=== PATIENT | male | born 1950 | race Caucasian/White ===

== ENCOUNTER 2019-04-16 09:31 | Outpatient (CLI) | payer MEDICARE, BC, SELFPAY | END 2019-04-16 09:32 | disposition home or self-care (01) | PROVIDERS: PCP Family Medicine; Visit Provider Internal Medicine Pulmonary Disease | DX: J44.9 Chronic obstructive pulmonary disease, unspecified (principal); J45.991 Cough variant asthma | CPT/HCPCS: 94060; 94726; 94729; 95012 ==

== ENCOUNTER 2019-11-12 14:14 | Outpatient (CLI) | payer MEDICARE, SELFPAY ==
[2019-11-12 14:27] LABS: Hematocrit 51.2 % (37.0-46.0); Hemoglobin 17.2 g/dL (12.4-15.3); Mean Corpuscular HGB Conc 33.6 g/dL (32.0-36.0); Mean Corpuscular Hemoglobin 30.4 pg (27.0-31.0); Mean Corpuscular Volume 90.6 fL (78.0-102.0); Mean Platelet Volume 12.1 fl (8.7-11.0); Platelet Count Result 128 K/mm3 (150-420); Red Blood Count 5.65 M/mm3 (4.70-6.10); Red Cell Distribution Width 12.9 % (11.6-14.4); White Blood Count 7.5 K/mm3 (4.8-10.8)
[2019-11-12 15:27] LABS: Alanine Aminotransferase 42 U/L (16-63); Albumin Level 4.4 g/dL (3.4-5.0); Alkaline Phosphatase 64 U/L (46-116); Anion Gap 8 mmol/L (8-16); Aspartate Amino Transferase 26 U/L (15-37); Bilirubin,Total 0.4 mg/dL (0.00-1.00); Blood Urea Nitrogen 13 mg/dL (7-18); Calcium 9.3 mg/dL (8.5-10.1); Carbon Dioxide 27 mmol/L (21-32); Chloride 106 mmol/L (98-108); Cholesterol 184 mg/dL (0-200); Estimated Glomerular Filt Rate > 60; Glucose 79 mg/dL (70-99); HDL Direct 25 mg/dL (40-60); LDL Cholesterol Calculated 107 mg/dL (<130); Osmolality Calculated 291 mOsm/kg (285-295); Potassium 4.3 mmol/L (3.5-5.1); Sodium 141 mmol/L (136-145); Total Protein 8.3 g/dL (6.4-8.2); Triglycerides 258 mg/dL (0-150)
== END 2019-11-12 14:15 | disposition home or self-care (01) ==
LOC: CHSLAB 14:17
PROVIDERS: PCP Family Medicine; Visit Provider Family Medicine
DX: I10 Essential (primary) hypertension (principal)
CPT/HCPCS: 36415; 80053; 80061; 85027

== ENCOUNTER 2020-04-24 10:26 | Outpatient (CLI) | payer MEDICARE, BC, SELFPAY ==
--- NOTE | ~2020-04-24 | XR_ITS ---
XR chest 2V 04/24/2020 10:46 Indication: Cough for 5 months Procedure: 2 view chest Comparison: CT dated 03/19/2019 and chest x-ray dated 12/31/2010 Findings: There is masslike density in the right suprahilar region. Correlation with contrast-enhance d CT recommended. Heart size normal. No edema, pleural effusion or pneumothorax. No acute osseous abn ormality. Impression: 1: Masslike density right suprahilar region. Follow-up CT chest with contrast recommended. Reviewed, dictated and finalized at location B. 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 Follow-up CT chest with contrast r ecommended.
== END 2020-04-24 10:27 | disposition home or self-care (01) ==
LOC: CHSIMG 10:30
PROVIDERS: PCP Family Medicine; Visit Provider Family Medicine
DX: R05 Cough (principal)
CPT/HCPCS: 71046

== ENCOUNTER 2020-04-27 08:14 | Outpatient (CLI) | payer MEDICARE, BC, SELFPAY ==
--- NOTE | ~2020-04-27 | CT_ITS ---
EXAMINATION: CT diagnostic chest w con DATE: 04/27/2020 09:22 INDICATION: Cough for 5 months. Masslike density in the right suprahilar area on 2 view ch est radiographic examination TECHNIQUE: Computed tomography (CT) of the chest was performed with 75 cc Omnipaque 350 intravenous c ontrast. Automated exposure control and iterative reconstruction technique were employed. Exam dose: 770.38 mGy-cm total exam DLP. COMPARISON: 04/24/2020 2 view chest 03/19/2019 CT lung screening FINDINGS: There is a completely new interval mass measuring up to 3.2 x 3.9 cm in the posterior segme nt of the right upper lobe, extending to the right suprahilar area. There is associated right hilar a nd subcarinal lymphadenopathy, with some interval enlarged superior mediastinal, prevascular and aort opulmonary lymph nodes compared to 03/19/2019. Findings are consistent with right upper lobe bronchogen ic carcinoma with right hilar and mediastinal metastatic adenopathy. There is mild surrounding right upper lobe infiltrate. Mild to moderate emphysema is noted. There are bilateral calcified pulmonary granulomas and calcified bilateral hilar and subcarinal lymph nodes, as well as some calcified splenic granulomas, consistent with old granulomatous disease. Normal size and homogeneous enhancement of the thyroid gland. No thoracic aortic aneurysm or dissecti on. Normal heart size. Coronary, aortic calcifications. No pericardial effusion. Probable small left hepatic cyst. 2.6 cm left renal cyst. There are a couple of very small upper pole right renal cyst. Normal morpholo gy of the adrenal glands. Diffuse idiopathic skeletal hyperostosis of the thoracic spine. No suspicious osteolytic or osteoblas tic lesions are noted. IMPRESSION: New 3.2 x 3.9 cm posterior segment right upper lobe bronchogenic carcinoma with metastat ic right hilar and mediastinal adenopathy Adjacent right upper lobe mild infiltrate Emphysema Hepatic and renal cysts Reviewed, dictated and finalized at Location A. Reviewed, dictated and finalized at location B. WINDER IMPRESSION: New 3.2 x 3.9 cm posterior segment right upper lobe bronchogenic c arcinoma with metastatic right hilar and mediastinal adenopathy Adjacent right upper lobe mild infiltrate Emphysema Hepatic and renal cysts
[2020-04-27 08:35] LABS: Estimated Glomerular Filt Rate > 60
== END 2020-04-27 08:15 | disposition home or self-care (01) ==
LOC: CHSIMG 08:16
PROVIDERS: PCP Family Medicine; Visit Provider Family Medicine
DX: R93.89 Abnormal findings on diagnostic imaging of other specified body structures (principal)
CPT/HCPCS: 71260; Q9967

== ENCOUNTER 2020-05-05 11:36 | Outpatient (CLI) | payer MEDICARE, BC, SELFPAY ==
--- NOTE | ~2020-05-05 | PE_ITS ---
. EXAMINATION: PET skull to mid thigh DATE: 05/05/2020 14:06 INDICATION: Malignant neoplasm of right lung upper lobe. TECHNIQUE: Blood glucose level was 106 mg/dL. 10.264 mCi of 18-fluorodeoxyglucose (18-FDG) was admini stered i.v. Low dose computed tomography (CT) images were acquired from the base of the brain to the proximal thighs for attenuation correction and anatomic localization. Automated exposure control was employed. Dose-length product (DLP) was 1167 mGy-cm. Positron emission tomography (PET) images were a cquired in the same distribution. COMPARISON: Chest CT 04/27/2020, 03/19/2019 FINDINGS: Head/neck: There is a 2.1 x 1.7 cm mass in superficial right parotid gland with maximum SUV of 19.4. There is a 1.4 x 1.0 cm mass in superficial left parotid gland with maximum SUV of 8.3. There is incr eased activity in two right supraclavicular lymph nodes, the larger of which measures 1.6 x 1.0 cm. Chest: Calcified pulmonary nodules and calcified hilar lymph nodes are consistent with old granulomat ous disease. There is a 5.8 x 2.7 cm mass with maximum SUV of 14.7 in right lung upper lobe with occl usion of the bronchi to the apical and posterior segments with peripheral mucous plugging. There are centrilobular nodules in the apical and posterior segments without increased activity, consistent wit h pneumonia. No pleural effusion. The heart size is normal. There are coronary artery calcifications. No pericardial effusion. There is right hilar and mediastinal lymphadenopathy with increased activit y. There are suture anchors in left humeral head. A small sclerotic lesion in left eighth rib is like ly a benign bone island. There is mild chronic anterior wedging of multiple thoracic vertebral bodies . Abdomen/pelvis/proximal thighs: The liver is normal. There are is a gallstone in the gallbladder, whi ch is normal in size. The spleen, pancreas, adrenal glands, are normal. There are cysts in the kidney s measuring up to 6.1 cm on the left. There is a 5 mm stone in right kidney. There is diverticulosis of the colon without evidence of diverticulitis. There are no dilated loops of bowel. The prostate is moderately enlarged. There are no pathologically enlarged lymph nodes. There is no free intraperiton eal fluid. IMPRESSION: 1. 5.8 x 2.7 cm mass in right lung upper lobe with increased activity, consistent with primary bronch ogenic carcinoma. 2. Right hilar, mediastinal, and right supraclavicular lymphadenopathy with increased activity, consi stent with metastatic disease. Ultrasound-guided core needle biopsy of a right supraclavicular lymph node is recommended. 3. Mild postobstructive pneumonia in right upper lobe. 4. Bilateral parotid masses with increased activity. The differential diagnosis includes benign mixed tumor, Warthin tumor, and less likely beatriz metastatic disease or primary malignancy. Ultrasound-kieran ded fine-needle aspiration is recommended. Reviewed, dictated and finalized at location A. 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 5.8 x 2.7 cm mass in right lung upper lobe with increased activity, consiste nt with primary bronchogenic carcinoma. 2. Right hilar, mediastinal, and right supraclavicular lymphadenopathy with inc reased activity, consistent with metastatic disease. Ultrasound-guided core nee dle biopsy of a right supraclavicular lymph node is recommended. 3. Mild postobstructive pneumonia in right upper lobe. 4. Bilateral parotid masses with increased activity. The differential diagnosis includes benign mixed tumor, Warthin tumor, and less likely beatriz metastatic d isease or primary malignancy. Ultrasound-guided fine-needle aspiration is recom mended.
[2020-05-05 12:30] LABS: Glucose Point of Care 106 (65-105)
== END 2020-05-05 11:37 | disposition home or self-care (01) ==
PROVIDERS: PCP Family Medicine; Visit Provider Internal Medicine Hematology & Oncology
DX: C34.90 Malignant neoplasm of unspecified part of unspecified bronchus or lung (principal); J18.9 Pneumonia, unspecified organism; R91.8 Other nonspecific abnormal finding of lung field
CPT/HCPCS: 78815; 82948; A9552

== ENCOUNTER → 2020-05-18 00:21 | Outpatient (CLI) | payer MEDICARE, BC, SELFPAY ==
[2020-05-18 18:02] LABS: SARS-CoV-2 RNA PCR Negative
== END ==
PROVIDERS: PCP Family Medicine; Visit Provider Surgery
DX: Z01.812 Encounter for preprocedural laboratory examination (principal); Z20.822 Contact with and (suspected) exposure to COVID-19
CPT/HCPCS: C9803; U0003; U0005

== ENCOUNTER 2020-05-18 09:56 | Outpatient (CLI) | payer MEDICARE, BC, SELFPAY ==
--- NOTE | 2020-05-18 10:05 | ECG_ITS ---
Measurements Intervals [place] Rate: 61 P: 90 OR: 168 QRS: 43 QRSD: 109 T: 33 QT: 403 QTc: 408 Interpretive Statements SINUS RHYTHM EARLY PRECORDIAL R/S TRANSITION CONSIDER INFERIOR INFARCT, AGE INDETERMINATE BASELINE ARTIFACT- I, II, III, AVR, AVL, AVF, V3, V6 ABNORMAL ECG Electronically Signed On 05-18-2020 10:32:37 PAINTINGS RESTORER by Zenon Sierra D.O.
[2020-05-18 10:24] LABS: Basophils Absolute Auto 0.1 K/mm3 (0.0-0.1); Basophils Percent Auto 0.7 % (0.2-1.2); Eosinophils Percent Auto 0.5 % (0-4.4); Hematocrit 51.7 % (42.0-52.0); Immature Granulocyte Absolute 0.02 K/mm3 (0.00-0.031); Immature Granulocyte Percent A 0.2 % (0-0.5); Immature Platelet Fraction Pct 8.9 % (0.9-11.2); Lymphocytes Percent Auto 19.9 % (18.3-44.2); Mean Corpuscular HGB Conc 32.9 g/dl (32-36); Mean Corpuscular Hemoglobin 29.5 pg (26-34); Mean Corpuscular Volume 89.8 fl (80-100); Mean Platelet Volume 11.4 fl (7.4-10.4); Monocytes Absolute Auto 0.7 K/mm3 (0.1-0.6); Neutrophils Absolute Auto 5.6 K/mm3 (1.3-6.7); Neutrophils Percent Auto 69.7 % (45.5-73.1); Platelet Count Result 118 k/mm3 (150-375); Red Blood Count 5.76 M/mm3 (4.6-6.20); Red Cell Distribution Width 14.2 % (11.5-14.5)
[2020-05-18 10:40] LABS: Anion Gap 3 mmol/L (8-16); Blood Urea Nitrogen 14 mg/dL (9-20); Calcium 9.5 mg/dL (8.4-10.2); Carbon Dioxide 32 mmol/L (22-30); Chloride 106 mmol/L (98-107); Estimated Glomerular Filt Rate > 60; Glucose 83 mg/dL (75-110); Potassium 4.3 mmol/L (3.4-5.0); Sodium 141 mmol/L (137-145)
[2020-05-18 10:42] LABS: Prothrombin Time 13.4 Seconds (11.1-14.7)
[2020-05-18 10:43] LABS: Partial Thromboplastin Time 28.9 SECONDS (22.3-36.8)
== END 2020-05-18 09:57 | disposition home or self-care (01) ==
LOC: ANHSURGERY 10:02
PROVIDERS: Anesthesiology; PCP Family Medicine; Visit Provider Surgery
DX: Z01.818 Encounter for other preprocedural examination (principal); I10 Essential (primary) hypertension; C34.90 Malignant neoplasm of unspecified part of unspecified bronchus or lung; Z51.81 Encounter for therapeutic drug level monitoring; R94.31 Abnormal electrocardiogram [ECG] [EKG]
CPT/HCPCS: 36415; 80048; 85025; 85055; 85610; 85730; 93005; C9803; U0003; U0005

== ENCOUNTER 2020-05-21 01:24 | Day surgery (SDC) | payer MEDICARE, BC, SELFPAY ==
[2020-05-15 13:15] VITALS: BMI 32.3
--- NOTE | 2020-05-20 12:23 | WPDANESEPPF ---
Anes - Initial Pre Proc Eval Procedure: Operation Date: 05/21/20 10:30 Proposed Procedures p Insertion Tess Cath - Zhou Willoughby DO Date/Time: 05/20/20 12:23 Surgeon: Zhou Willoughby DO Pre Op Diagnosis: mag. neoplasm upper lobe lung Patient Data Age: 69 Gender: M Height: 1.83 m Weight: 108 kg Allergies Allergy/AdvReac Type Severity Reaction Status Date / Time penicillin G Allergy Mild Rash Verified 05/21/20 08:25 Home Medications Medication Instructions Recorded Confirmed Type albuterol sulfate 90 mcg/actuation 2 inhalation INHALATION Q4-6H PRN 11/12/19 05/20/20 History breath activated powder inhaler mometasone 50 mcg/actuation nasal 2 spray INTRANASAL DAILY PRN #17 g 04/21/20 05/20/20 Rx spray montelukast 10 mg tablet 10 mg PO DAILY #90 tablet 04/21/20 05/20/20 Rx losartan-hydrochlorothiazide 1 tablet PO QAM 05/15/20 05/20/20 History Patient hx anesthesia problems: none Family hx anesthesia problems: none PMFSH Past Medical History Medical History (Updated 05/20/20 @ 12:24 by Gume Samuel MD) Bronchogenic carcinoma COPD (chronic obstructive pulmonary disease) Ear foreign body History of DVT (deep vein thrombosis) Hypertension Lung mass Malignant neoplasm of upper lobe, right bronchus or lung BRANDYN on CPAP Osteoarthritis Tobacco abuse Surgical History Surgical History History of left knee surgery History of shoulder surgery left Hx of tonsillectomy S/P hernia surgery Family History Family History (Updated 05/20/20 @ 11:12 by Aniceto Gilmore MD) Father Heart disease Mother Lung cancer Social History Social History Smoking packs per day: 2 Smoking cigarettes per day: 40.0 Years smoked: 50 Smoking pack-years: 100.00 Smoking status: Former smoker Tobacco type: cigarettes and e-cigarettes/vaping Additional smoking assessment comments: smoked less than 1/2 pack when he stopped Alcohol intake: current Living arrangements: with family Additional living arrangements comments: . Enjoys Camping. Additional occupation/education comments: Prior Occupation: [employer] Spiritual care concerns: No Anes - Eval Final PreProcedure Day of Procedure 05/20/20 12:23 Patient weight: obese Heart: regular rate and rhythm Lungs: clear to auscultation and normal air movement Airway: Mallampati scale class II Neurological: alert and oriented Last oral intake: >/= 8 hours ASA classification: III Emergent: no Anesthetic plan: proceed Anesthesia type and monitoring: general GIVS Informed Consent: The patient's anesthetic plan and its attendant risks and benefits were discussed with the patient/family/POA. Questions were solicited and answers provided to the satisfaction of the patient/family/POA.
--- NOTE | ~2020-05-21 | XR_ITS ---
EXAMINATION: XR fl guide central line place EXAM DATE: 05/21/2020 11:14 INDICATION: Tess catheter insertion. TECHNIQUE: Fluoroscopy used during XR fl guide central line place performed by Dr. Zhou leslie DO. The DAP for this procedure was 1.6 mGym2. FINDINGS: Frontal image demonstrates left-sided portacatheter, IJ approach, tip projecting inferiorl y over expected location of cavoatrial junction. Correlate with procedure note. IMPRESSION: Fluoroscopy used during XR fl guide central line place. 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
--- NOTE | ~2020-05-21 | XR_ITS ---
EXAMINATION: XR chest port-a-cath/central EXAM DATE: 05/21/2020 11:34 INDICATION: Tess catheter insertion. TECHNIQUE: Portable AP frontal chest x-ray was obtained. Comparison is made to prior examination from 04/24/2020. FINDINGS: There is a left-sided IJ approach portacatheter. Tip projects at the level of the percy ov erlying the SVC, pointing inferiorly. No postprocedure pneumothorax. Cardiomediastinal silhouette is normal. There are no pleural effusions. No confluent airspace disease. IMPRESSION: 1. No evidence postprocedure pneumothorax. Reviewed, dictated and finalized at location B. 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
[2020-05-21 08:22] VITALS: BP 108/68; PULSE 69; RESP 16; TEMP 36.3; O2SAT 98
[2020-05-21] MEDS: LACTATED RINGERS 1,000 ML 30 ML IV CONT (08:53)
[2020-05-21] MEDS: KETOROLAC 15 MG/ML VIAL (*BKC) IV PUSH (08:55)
--- NOTE | 2020-05-21 10:02 | PM.IMHP ---
H&P: HPI History of Present Illness Date/Time: 05/21/20 10:02 Chief Complaint: right lung cancer Narrative: 69 yo man presents for port placement. He was recently diagnosed with right lung cancer. He is in need of medical terminologist IV access for chemotherapy. Review of Systems Review of Systems: All systems reviewed & are unremarkable except as noted in HPI and below Constitutional: Constitutional: Denies chills, Denies fever(s), Denies headache(s) and Denies weight loss Eyes: Eyes: Denies change in vision ENT: Denies dizziness, Denies headache(s), Denies neck mass and Denies throat swelling Cardiovascular: Cardiovascular: Denies chest pain, Denies lightheadedness and Denies dyspnea Respiratory: Respiratory: Denies cough, Denies dyspnea and Denies wheezing Gastrointestinal: Gastrointestinal: Denies abdominal pain, Denies change in bowel habits, Denies nausea and Denies vomiting Genitourinary: Genitourinary: Denies hematuria and Denies dysuria Musculoskeletal: Musculoskeletal: Reports as per HPI Integumentary/Breasts: Skin/Breast: Reports as per HPI Neurologic: Denies dizziness and Denies headache(s) Allergic/Immunologic: Allergic/Immunologic: Denies throat swelling and Denies wheezing PMFSH Past Medical History Medical History Bronchogenic carcinoma COPD (chronic obstructive pulmonary disease) Ear foreign body History of DVT (deep vein thrombosis) Hypertension Lung mass Malignant neoplasm of upper lobe, right bronchus or lung BRANDYN on CPAP Osteoarthritis Tobacco abuse Surgical History Surgical History History of left knee surgery History of shoulder surgery left Hx of tonsillectomy S/P hernia surgery Family History Family History Father Heart disease Mother Lung cancer Social History Social History Smoking packs per day: 2 Smoking cigarettes per day: 40.0 Years smoked: 50 Smoking pack-years: 100.00 Smoking status: Former smoker Tobacco type: cigarettes and e-cigarettes/vaping Additional smoking assessment comments: smoked less than 1/2 pack when he stopped Alcohol intake: current Living arrangements: with family Additional living arrangements comments: . Enjoys Camping. Additional occupation/education comments: Prior Occupation: [employer] Spiritual care concerns: No Meds Home Medications and Allergies Home Medications Medication Instructions Recorded Confirmed Type albuterol sulfate 90 mcg/actuation 2 inhalation INHALATION Q4-6H PRN 11/12/19 05/21/20 History breath activated powder inhaler mometasone 50 mcg/actuation nasal 2 spray INTRANASAL DAILY PRN #17 g 04/21/20 05/21/20 Rx spray montelukast 10 mg tablet 10 mg PO DAILY #90 tablet 04/21/20 05/21/20 Rx losartan-hydrochlorothiazide 1 tablet PO QAM 05/15/20 05/21/20 History ywtghdunpigc-udthzefh-srixpn 1 tablet PO DAILY 05/21/20 05/21/20 History [Multivitamin 50 Plus] Allergies Allergy/AdvReac Type Severity Reaction Status Date / Time penicillin G Allergy Mild Rash Verified 05/21/20 08:25 Vital Signs Vital Signs - 24 hr 05/21/20 08:22 Temperature 36.3 C L Pulse Rate 69 Respiratory Rate 16 Blood Pressure 108/68 Pulse Oximetry 98 Exam Const: General: no acute distress and alert Orientation/consciousness: patient oriented x3 HENMT: Head: normocephalic and atraumatic Ears: hearing grossly normal bilaterally General nose exam: Normal nares present Mouth: Yes Normal oral and palatal mucosa present Eyes: Periorbital: periorbital findings normal Sclera: sclerae normal EOM: EOMs intact bilaterally Neck: Neck: normal visual inspection, no lymphadenopathy and trachea midline Chest: Chest palpation & inspection: normal inspection of the chest Resp:
--- NOTE | 2020-05-21 10:16 | WPDHPUPDATE1 ---
History and Physical Update Update Date/Time: 05/21/20 10:16 History and Physical has been reviewed, including an updated exam of the patient. There are NO changes in the patient's condition. Risks, benefits, and alternatives have been discussed and questions answered. Patient agrees to proceed with procedure.
[2020-05-21] MEDS: ceFAZolin 2 GM/D5W 50 ML 2 GM/50 ML BAG IVPB (10:26)
[2020-05-21] MEDS: LIDO 1%/EPINEPHRINE 1:100,000 50 ML VIAL INFILTRATE (10:55)
[2020-05-21] MEDS: HEPARIN SODIUM 5,000 UNITS/ML VIAL 5000 UNITS IRRIGATION (10:56)
[2020-05-21] MEDS: HEPARIN SODIUM, PORCINE 10,000 UNITS/10 ML VIAL 10000 UNITS IRRIGATION (10:58)
[2020-05-21 11:19] VITALS: BP 113/77; PULSE 80; RESP 16; O2SAT 97
--- NOTE | 2020-05-21 11:30 | PM.PROC ---
Procedure Note - Detailed Date of procedure: 05/21/20 Pre-op diagnosis: mag. neoplasm upper lobe lung Post-op diagnosis: same Procedure performed: Left internal jugular Port-A-Cath placement using ultrasound and fluoroscopic guidance Description of procedure: Procedure as well as risks, benefits, and alternatives were discussed with patient. Written consent was obtained and placed in chart prior to procedure. Patient was brought back to surgical suite. Was placed supine on operating table. Time-out was done confirm patient procedure. IV sedation was then administered by the Anesthesia Department. The chest and neck area was prepped and draped in sterile fashion using chlorhexidine prep. Patient was placed in Trendelenburg position. SonoSite ultrasound was used to identify the left internal jugular vein. It was visualized as a compressible vessel just lateral to the carotid artery. 1% lidocaine with epinephrine was infiltrated directly over the vessel under ultrasound guidance. An 18 gauge introducer needle was then advanced under ultrasound guidance directly into the left internal jugular vein. Dark nonpulsatile blood was aspirated. A 0.035 in guidewire was then advanced through the needle under fluoroscopic guidance. The guidewire was visualized advancing all the way down into the superior vena cava. 1% lidocaine with epinephrine was then infiltrated on the left anterior chest and along the tract up to the guidewire insertion site. A 3 cm incision was made with a 15 blade scalpel, and electrocautery was then used for dissection down through the subcutaneous tissue to the pectoral fascia. A pocket was created just inferior to the incision using blunt dissection. A small chary incision was then also made at the insertion site at the neck. The tunneler was then advanced from the chest incision up to the neck incision and the catheter tubing was brought up through this tract. The dilator and sheath were then advanced over the guidewire under fluoroscopic visualization. The dilator and guidewire were then removed leaving the sheath in place. The catheter tubing was then advanced through the sheath under fluoroscopic guidance. The sheath was unsnapped and carefully peeled away. The catheter tubing was released underneath the neck incision. Fluoroscopy was used to confirm proper placement of the catheter tubing and no kinks along its path. The catheter was then cut to proper length and secured to the port. The port was then accessed with a Ku needle and aspirated and flushed with heparinized saline. The port function with ease. The port was then hep-locked with Hep-Lock solution. The port was then placed within the pocket that was created, and was secured to the fascia using 3 0 Prolene simple interrupted sutures. The patient was flattened out in bed. Penny's fascia was reapproximated using 3 0 Vicryl simple interrupted sutures. The skin of the incisions was then approximated using 4-0 Monocryl subcuticular suture. Exofin glue was then applied on top. The patient was then awakened from anesthesia and transferred to recovery. Implants: Smart Port CT port Anesthesia: MAC and local (1% lidocaine with epinephrine) Surgeon: Zhou Willoughby DO Estimated blood loss (mL): 10 Complications: No immediate complications Condition: stable Disposition: same day Findings: U/s was used to identify the left internal jugular vein. 18g introducer needle advanced under u/s guidance. Dark non-pulsatile blood was aspirated. Fluoroscopy was used to guide advancement of the guidewire, dilator, and sheath. I did have some difficulty getting the catheter tubing to direct into the superior vena cava. It was advancing into the azygous vein initially. I was eventually able to get a glidewire to advance into the right atrium and advance the catheter over the guidewire into the distal SVC. Final fluoroscopic images demonstrated port in proper position with tip in dist
[2020-05-21 11:45] VITALS: BP 121/81; PULSE 72; RESP 20
[2020-05-21 12:15] VITALS: BP 117/80; PULSE 74; RESP 20
--- NOTE | 2020-05-21 14:25 | SUR.PHASEII ---
1130 - xray results noted 1205 - pt c/o rt calf discomfort. pt states that it is a soreness and does not need pain medication at this time. no swelling noted to rt calf. michaela's sign negative. dr. lizarraga called and informed of pt's complaints. no orders received at this time.
== END 2020-05-21 12:20 | disposition home or self-care (01) ==
PROVIDERS: PCP Family Medicine; Visit Provider Surgery
PROC: (CPT 36561; principal; 2020-05-21 10:30)
DX: C34.11 Malignant neoplasm of upper lobe, right bronchus or lung (principal); J44.9 Chronic obstructive pulmonary disease, unspecified; I10 Essential (primary) hypertension; G47.33 Obstructive sleep apnea (adult) (pediatric); M19.90 Unspecified osteoarthritis, unspecified site; Z86.718 Personal history of other venous thrombosis and embolism; Z87.891 Personal history of nicotine dependence; Z79.51 Long term (current) use of inhaled steroids
CPT/HCPCS: 36561; 77001; C1769; C1788; J0690; J1644; J1885; J2250; J2704; J3010; J7030; J7120

== ENCOUNTER 2020-06-02 08:48 | Outpatient (CLI) | payer MEDICARE, BC, SELFPAY ==
--- NOTE | ~2020-06-02 | CT_ITS ---
EXAMINATION: CT brain w con DATE: 06/02/2020 09:49 INDICATION: Right lung cancer. TECHNIQUE: Computed tomography (CT) of the head was performed with 100 cc Omnipaque 350 intravenous c ontrast. The dose-length product was 605.33 mGy-cm. The mA was adjusted according to patient size. It erative reconstruction technique was employed. COMPARISON: CT sinus dated 03/29/2011 and PET/CT dated 05/05/2020 FINDINGS: Brain parenchymal volume is normal for age. There is no abnormally enhancing masses or pare nchymal enhancement. No ventriculomegaly or midline shift. Paranasal sinuses and mastoids are pneumat ized. No depressed skull fractures. Evaluation. IMPRESSION: 1. No acute intracranial abnormality. No evidence for metastases. 2: Chronic left parietal infarction. Reviewed, dictated and finalized at location A.
--- NOTE | ~2020-06-02 | US_ITS ---
EXAMINATION: US FNA w image guidance DATE: 06/02/2020 10:44 INDICATION: Right lung cancer. Bilateral FDG avid parotid nodules. TECHNIQUE: A time-out was performed to verify the patient's name, date of , and procedure to be performed . The procedure and its benefits and risks were discussed with the patient. Risks specifically discus sed included bleeding and infection. The patient understood the risks and agreed to proceed. The righ t side of the face/upper neck was prepped and draped in the usual sterile manner. 2 mL 1% lidocaine was used for local anesthesia. 6 passes were made with a 25G needle into the lesion. Appropriate ne edle location was documented with continuous sonographic guidance. A sterile bandage was applied. Th ere were no immediate complications. FINDINGS: Grayscale ultrasound images demonstrate biopsy needles advanced into a 2.4 x 1.6 x 1.7 cm hypoechoic right parotid mass. IMPRESSION: 1. Successful ultrasound-guided fine needle aspiration of a 2.4 x 1.6 x 1.7 cm hypoechoic right paro tid mass. Reviewed, dictated and finalized at location A. IMPRESSION: 1. Successful ultrasound-guided fine needle aspiration of a 2.4 x 1.6 x 1.7 cm hypoechoic right parotid mass.
--- NOTE | ~2020-06-02 | US_ITS ---
. EXAMINATION: US biopsy lymph node DATE: 06/02/2020 10:42 INDICATION: Right lung cancer with FDG avid right supraclavicular lymphadenopathy TECHNIQUE: The procedure including the risks and benefits was discussed with the patient. Risks discu ssed included bleeding and infection. The patient understood the risks and agreed to proceed. The sk in overlying the supraclavicular region was prepped and draped in usual sterile fashion. Anesthetic was administered with 1% lidocaine subcutaneously. An 18 gauge core biopsy needle was advanced under continuous ultrasound observation to 2 of the lesions of interest. 6 core biopsy specimens were obta ined, 3 each from the 2 largest right supraclavicular lymph nodes. The needle was removed and the en try site was cleaned and dressed. Post procedure ultrasound demonstrated no hemorrhage. FINDINGS: Ultrasound images demonstrate several hypoechoic right supraclavicular lymph nodes, the 2 l argest measuring 9 x 9 mm and 11 x 7 mm . Subsequent images demonstrate biopsy needles advanced into each of these lymph nodes. IMPRESSION: 1. Successful Ultrasound-guided biopsy of a pair of mildly enlarged right supraclavicular lymph nodes which demonstrate increased FDG uptake on prior PET/CT. Reviewed, dictated and finalized at location A. IMPRESSION: 1. Successful Ultrasound-guided biopsy of a pair of mildly enlarged right supra clavicular lymph nodes which demonstrate increased FDG uptake on prior PET/CT.
[2020-06-02 09:35] LABS: Estimated Glomerular Filt Rate > 60
== END 2020-06-02 08:49 | disposition home or self-care (01) ==
PROVIDERS: PCP Family Medicine; Visit Provider Internal Medicine Hematology & Oncology
DX: C34.91 Malignant neoplasm of unspecified part of right bronchus or lung (principal); C77.9 Secondary and unspecified malignant neoplasm of lymph node, unspecified; D11.0 Benign neoplasm of parotid gland; I63.9 Cerebral infarction, unspecified
CPT/HCPCS: 10005; 38505; 70460; 76942; 88173; 88305; 88313; 88342; Q9967

== ENCOUNTER 2020-10-23 10:04 | Outpatient (CLI) | payer MEDICARE, BC, SELFPAY ==
--- NOTE | ~2020-10-23 | CT_ITS ---
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 The dose-length product (DLP) was 713.81 mGy-cm. Ite rative reconstruction was used. COMPARISON: 05/05/2020 FINDINGS: There is a 1.9 x 1.2 cm nodule in the medial right upper lobe on image 40 which is decrease d in size since the comparison examination. There is mild atelectasis of the right upper lobe. No ple ural effusion or pneumothorax is identified. There is mild emphysema. A left subclavian Port-A-Cath e nds with its tip in the proximal right atrium. Mediastinal and right hilar lymphadenopathy have resol martha. There is calcified coronary artery atherosclerosis. The heart size is normal. An 11 mm cyst is p resent in the right hepatic lobe. There is a 2.6 cm cyst of the left kidney. A stone is present in th e nondistended gallbladder. IMPRESSION: 1. Interval decrease in size of a right upper lobe nodule, consistent with response to therapy. 2. Resolved thoracic lymphadenopathy. Reviewed, dictated and finalized at location B. IMPRESSION: 1. Interval decrease in size of a right upper lobe nodule, consistent with resp onse to therapy. 2. Resolved thoracic lymphadenopathy.
== END 2020-10-23 10:05 | disposition home or self-care (01) ==
PROVIDERS: PCP Family Medicine; Visit Provider Internal Medicine Hematology & Oncology
DX: C34.11 Malignant neoplasm of upper lobe, right bronchus or lung (principal)
CPT/HCPCS: 71260; Q9967

== ENCOUNTER 2020-11-18 11:25 | Outpatient (CLI) | payer MEDICARE, BC, SELFPAY ==
--- NOTE | ~2020-11-18 | US_ITS ---
EXAMINATION: US venous doppler LE RT DATE: 11/18/2020 11:59 INDICATION: Right lower limb pain and swelling. Personal history of other venous thrombosis. TECHNIQUE: Grayscale ultrasound images without and with compression and Doppler ultrasound images of the right lower extremity veins were obtained. COMPARISON: Ultrasound 04/10/2018 FINDINGS: The visualized portions of right common femoral vein, profunda (deep) femoral vein, and greater saphe nous vein outflow are patent. There is thrombus in right femoral, popliteal, posterior tibial, perone al, gastrocnemius, and soleus veins. IMPRESSION: 1. Deep vein thrombosis involving right femoral, popliteal, posterior tibial, peroneal, gastrocnemiu s, and soleus veins. I called this result to Ruthann Boss. Reviewed, dictated and finalized at location A. IMPRESSION: 1. Deep vein thrombosis involving right femoral, popliteal, posterior tibial, peroneal, gastrocnemius, and soleus veins. I called this result to Ruthann ernandez
== END 2020-11-18 11:26 | disposition home or self-care (01) ==
LOC: ANHIMG 11:33
PROVIDERS: PCP Family Medicine; Visit Provider Nurse Practitioner Family
DX: M79.89 Other specified soft tissue disorders (principal); Z86.718 Personal history of other venous thrombosis and embolism; I82.431 Acute embolism and thrombosis of right popliteal vein; I82.411 Acute embolism and thrombosis of right femoral vein; I82.441 Acute embolism and thrombosis of right tibial vein; I82.451 Acute embolism and thrombosis of right peroneal vein; I82.461 Acute embolism and thrombosis of right calf muscular vein; I82.491 Acute embolism and thrombosis of other specified deep vein of right lower extremity
CPT/HCPCS: 93971

== ENCOUNTER 2020-12-14 03:20 | Emergency (ER) | payer MEDICARE, BC, SELFPAY ==
--- NOTE | ~2020-12-14 | CT_ITS ---
EXAMINATION: CT abdomen pelvis wo con DATE: 12/14/2020 06:14 INDICATION: Abdominal pain, right side. Flank pain. TECHNIQUE: Computed tomography (CT) of the abdomen and pelvis was performed without intravenous contr ast. Automated exposure control and iterative reconstruction technique were employed. Exam dose: 629 .23 mGy-cm total exam DLP. COMPARISON: May 05, 2020 CT scan FINDINGS: The lung bases are clear of infiltrate or consolidation. Normal heart size. No pericardial or pleural effusion. Cholelithiasis. No gallbladder wall thickening or pericholecystic fluid or fat stranding. There is a 12.5 mm indeterminate peripheral hypoattenuating hepatic lesion near the junction of the m edial segment of the left and right hepatic lobe. No other hepatic space-occupying mass lesion is dereje dent on this limited noncontrast examination. Normal splenic size. No pancreatic mass lesion, calcification or ductal dilatation. No bile duct dila tation. Normal morphology of the adrenal glands. 3.8 cm exophytic lower pole right renal cyst. 1.4 cm mid right renal probable cyst. 2.4 cm in 6 cm left renal cyst. 4 mm distal right ureteral calculus with mild right hydroureteronephrosis. No other urinary tract calculus is noted. There is prostate enlargement and calcification. There is moderate diffuse thickening of the urinary bladder wall. There is atherosclerotic calcification of the abdominal aorta but no aneurysm. No intraperitoneal or retroperitoneal or pelvic mass lesion or adenopathy or ascites. Normal appendix. Diverticulosis of the sigmoid and descending colon; no CT evidence of diverticulitis . No bowel obstruction, bowel wall thickening, pneumatosis or intraperitoneal free air. Degenerative changes of the included lower thoracic and lumbar spine. Bilateral hip osteoarthritis. N o suspicious osteolytic or osteoblastic lesions are noted. IMPRESSION: 4 mm distal right ureteral calculus with mild right hydroureteronephrosis Bilateral renal cysts Prostate enlargement and calcification Diverticulosis of the left colon; no CT evidence of diverticulitis Indeterminate 12.5 mm hepatic mass Cholelithiasis Reviewed, dictated and finalized at Location A. Reviewed, dictated and finalized at location A. IMPRESSION: 4 mm distal right ureteral calculus with mild right hydroureterone phrosis Bilateral renal cysts Prostate enlargement and calcification Diverticulosis of the left colon; no CT evidence of diverticulitis Indeterminate 12.5 mm hepatic mass Cholelithiasis
[2020-12-14 03:20] VITALS: BP 171/99; PULSE 68; RESP 20; TEMP 36.2; O2SAT 96
[2020-12-14] MEDS: ONDANSETRON INJ 4 MG/2 ML VIAL IV PUSH (04:00)
--- NOTE | 2020-12-14 04:02 | ECG_ITS ---
Measurements Intervals Albert Rate: 65 P: 54 IA: 157 QRS: -1 QRSD: 111 T: 46 QT: 340 QTc: 354 Interpretive Statements SINUS RHYTHM INTRAVENTRICULAR CONDUCTION DELAY EARLY PRECORDIAL R/S TRANSITION INFERIOR INFARCT, AGE INDETERMINATE BASELINE ARTIFACT- I, II, III, AVR, AVL, AVF, V1-V6 ABNORMAL ECG Electronically Signed On 12-14-2020 7:02:58 CDT by Zenon Sierra D.O.
--- NOTE | 2020-12-14 04:14 | ED.ABDPAIN ---
HPI - Abdominal Pain General Chief Complaint: Abdominal Pain <Shannon Minor MD - Last Filed: 12/14/20 07:12> Stated Complaint: PAIN <Shannon Minor MD - Last Filed: 12/14/20 07:12> Time Seen by Provider: 12/14/20 07:33 <Shannon Minor MD - Last Filed: 12/14/20 07:12> Source: patient <Shannon Minor MD - Last Filed: 12/14/20 07:12> Mode of arrival: ambulatory <Shannon Minor MD - Last Filed: 12/14/20 07:12> Limitations: no limitations <Shannon Minor MD - Last Filed: 12/14/20 07:12> History of Present Illness HPI narrative: Pt presents with complaints of sudden onset RLQ/ Back pain. he went to bed at 10 pm, and woke at 11 pm with pain. He states pain became very intense and even caused him to vomit several times. He has never hasd this type of pain before. He has had a complex year with undergoing chemo for lung cancer and radiation. He tells me the tumor shrinked from 6 cm to 2 cm. The main tumor is in the lung. <Shannon Minor MD - Last Filed: 12/14/20 07:12> MD elicited complaint: abdominal pain <Shannon Minor MD - Last Filed: 12/14/20 07:12> Pain Consistency: constant <Shannon Minor MD - Last Filed: 12/14/20 07:12> Location: RLQ <Shannon Minor MD - Last Filed: 12/14/20 07:12> Severity: severe <Shannon Minor MD - Last Filed: 12/14/20 07:12> Quality: stabbing and sharp <Shannon Minor MD - Last Filed: 12/14/20 07:12> Migration to: other (back) <Shannon Minor MD - Last Filed: 12/14/20 07:12> Exacerbating factors: nothing <Shannon Minor MD - Last Filed: 12/14/20 07:12> Relieving factors: nothing <Shannon Minor MD - Last Filed: 12/14/20 07:12> Associated symptoms: nausea and vomiting <Shannon Minor MD - Last Filed: 12/14/20 07:12> Treatments prior to arrival: other (tylenol) <Shannon Minor MD - Last Filed: 12/14/20 07:12> Related Data Home Medications: Home Medications Medication Instructions Recorded Confirmed albuterol sulfate 90 mcg/actuation 2 inhalation INHALATION Q4-6H PRN 11/12/19 12/14/20 breath activated powder inhaler Multivitamin 50 Plus 1 tablet PO DAILY 05/21/20 12/14/20 <Shannon Minor MD - Last Filed: 12/14/20 07:12> Allergies/Adverse Reactions: Allergies Allergy/AdvReac Type Severity Reaction Status Date / Time penicillin G Allergy Mild Rash Verified 12/03/20 09:42 <Shannon Minor MD - Last Filed: 12/14/20 07:12> Review of Systems Review of Systems: All systems reviewed & are unremarkable except as noted in HPI and below <Shannon Minor MD - Last Filed: 12/14/20 07:12> Constitutional: Constitutional: Reports no additional constitutional complaints <Shannon Minor MD - Last Filed: 12/14/20 07:12> Eyes: Eyes: Reports no additional eye complaints <Shannon Minor MD - Last Filed: 12/14/20 07:12> ENT: Reports system reviewed and no additional complaints, except as documented <Shannon Minor MD - Last Filed: 12/14/20 07:12> Cardiovascular: Cardiovascular: Reports no additional cardiovascular complaints <Shannon Minor MD - Last Filed: 12/14/20 07:12> Respiratory: Respiratory: Reports no additional respiratory complaints <Shannon Minor MD - Last Filed: 12/14/20 07:12> Gastrointestinal: Gastrointestinal: Reports abdominal pain, Denies bloating, Denies constipation, Denies heartburn, Denies diarrhea, Reports nausea and Reports vomiting <Shannon Minor MD - Last Filed: 12/14/20 07:12> Genitourinary: Genitourinary: Reports no additional male genitourinary complaints <Shannon Minor MD - Last Filed: 12/14/20 07:12> Musculoskeletal: Musculoskeletal: Reports as per HPI, Reports back pain, Denies myalgias, Denies arthralgias, Denies joint swelling and Denies muscle cramps <Shannon Minor MD - Last
[2020-12-14 04:23] LABS: Basophils Absolute Auto 0.05 K/mm3 (0.00-0.10); Basophils Percent Auto 0.8 % (0.0-1.0); Eosinophils Absolute Auto 0.05 K/mm3 (0.02-0.50); Eosinophils Percent Auto 0.8 % (1.0-6.0); Hematocrit 44.8 % (37.0-46.0); Hemoglobin 15.1 g/dL (12.4-15.3); Immature Granulocyte Absolute 0.02 K/mm3 (0.00-0.00); Immature Granulocyte Percent A 0.3 % (0.0-0.0); Immature Platelet Fraction Pct 3.7 % (1.0-7.0); Lymphocytes Absolute Auto 0.74 K/mm3 (1.10-4.50); Lymphocytes Percent Auto 12.4 % (18.0-42.0); Mean Corpuscular HGB Conc 33.7 g/dL (32.0-36.0); Mean Corpuscular Hemoglobin 30.3 pg (27.0-31.0); Mean Platelet Volume 10.9 fl (8.7-11.0); Monocytes Absolute Auto 0.52 K/mm3 (0.10-0.90); Monocytes Percent Auto 8.7 % (2.0-11.0); Neutrophils Absolute Auto 4.6 K/mm3 (1.7-7.2); Platelet Count Result 83 K/mm3 (150-420); Red Blood Count 4.98 M/mm3 (4.70-6.10); Red Cell Distribution Width 12.6 % (11.6-14.4)
[2020-12-14] MEDS: KETOROLAC 15 MG/ML VIAL (*BKC) IV PUSH ×2 (04:29→07:54)
[2020-12-14 04:47] LABS: Alanine Aminotransferase 42 U/L (16-63); Albumin Level 3.9 g/dL (3.4-5.0); Alkaline Phosphatase 57 U/L (46-116); Anion Gap 14 mmol/L (8-16); Aspartate Amino Transferase 25 U/L (15-37); Bilirubin,Total 0.6 mg/dL (0.00-1.00); Blood Urea Nitrogen 17 mg/dL (7-18); Carbon Dioxide 22 mmol/L (21-32); Chloride 106 mmol/L (98-108); Estimated Glomerular Filt Rate 56; Glucose 163 mg/dL (70-99); Lipase 124 U/L (73-393); Osmolality Calculated 299 mOsm/kg (285-295); Potassium 4.3 mmol/L (3.5-5.1); Sodium 142 mmol/L (136-145); Total Protein 7.3 g/dL (6.4-8.2); Troponin I 11.6 ng/L (0.00-60.4)
[2020-12-14 04:54] LABS: Add Urine Microscopic? YES; Bilirubin Urine Negative (Negative); Blood Urine 2+ (Negative); Color Urine Yellow (Yellow); Glucose Urine UA Negative (Negative); Ketones Urine Negative (Negative); Leukocyte Esterase Ur Negative LEU/UL (Negative); Nitrate Urine Negative (Negative); Protein Urine 1+ (Negative); Specific Grav Ur >= 1.030 (1.010-1.020); Urobilinogen Urine 0.2 mg/dL (0.2-1.0); pH Urine 5.5 (5.0-8.0)
[2020-12-14 05:03] LABS: Amorphous Sediment Urine Moderate; Appearance Urine Sl Cloudy (Clear); Bacteria Urine 1+ /hpf; Mucus Urine Heavy /lpf; Squamous Epithelial Cell Urine Occasional /hpf (Few); WBC Urine None seen /hpf (0-3)
--- NOTE | 2020-12-14 06:24 | PC.NURSE ---
pt resting per cot. returned from ct. remains pain free
[2020-12-14 06:25] VITALS: BP 137/77; PULSE 65; RESP 20; TEMP 37.1; O2SAT 96
--- NOTE | 2020-12-14 07:14 | PC.NURSE ---
report to brittney samson
[2020-12-14 07:30] VITALS: BP 127/79; PULSE 69; RESP 18; O2SAT 96
== END 2020-12-14 08:15 | disposition home or self-care (01) ==
PROVIDERS: Emergency Medicine; Emergency Provider Emergency Medicine; PCP Family Medicine
DX: N13.2 Hydronephrosis with renal and ureteral calculous obstruction (principal); C34.11 Malignant neoplasm of upper lobe, right bronchus or lung; R16.0 Hepatomegaly, not elsewhere classified; J44.9 Chronic obstructive pulmonary disease, unspecified; I10 Essential (primary) hypertension; M19.90 Unspecified osteoarthritis, unspecified site; G47.33 Obstructive sleep apnea (adult) (pediatric); Z87.891 Personal history of nicotine dependence; Z86.718 Personal history of other venous thrombosis and embolism; K57.30 Diverticulosis of large intestine without perforation or abscess without bleeding
CPT/HCPCS: 36415; 74176; 80053; 81001; 83690; 84484; 85025; 85055; 93005; 96374; 96375; 99283; 99284; J1885; J2405

== ENCOUNTER 2020-12-22 12:29 | Outpatient (CLI) | payer MEDICARE, BC, SELFPAY ==
--- NOTE | ~2020-12-22 | PE_ITS ---
EXAMINATION: PET skull to mid thigh DATE: 12/22/2020 15:43 INDICATION: Non-small cell cancer of the right lung. TECHNIQUE: Blood glucose level was 95 mg/dL. 9.631 mCi of 18-fluorodeoxyglucose (18-FDG) was administ ered i.v. Low dose computed tomography (CT) images were acquired from the base of the brain to the pr oximal thighs for attenuation correction and anatomic localization. Positron emission tomography (PET ) images were acquired in the same distribution beginning 63 minutes after injection. Images includin g fused PET/CT images were reconstructed in axial, coronal, and sagittal planes. Automated exposure c ontrol technique was employed. The dose-length product was 1217.00mGy-cm. COMPARISON: Chest CT dated 10/23/2020 and abdomen and pelvis dated 12/14/2020 and PET/CT dated FINDINGS: Head/neck: 1.7 mm FDG avid right parotid nodule with maximal SUV 17.6. There is a second significant smaller FDG avid nodule at the left parotid with maximal SUV of 5.4 which is partially obscured on the CT images by streak artifact from patient's dental restorations. There is mild FDG uptake associated with a a couple subcentimeter lymph nodes, one in the left posterior cervical triangle with maximal SUV of 3.2 and a second more caudally in the left jugular chain with maximal SUV of 2.7. The previously seen pa ir of mildly enlarged, FDG avid and biopsy-proven metastatic right supraclavicular lymph nodes a now indiscernible with no appreciable FDG activity consistent with interval response to treatment. Symmet barak increased activity in the oral cavity, laryngeal muscles and ocular muscles without CT correlate, likely physiologic. Chest: Decrease in size of a previously 3.7 x 3.6 cm mass with maximal SUV of 14.7 in the posterior segment of the right upper lobe which now measures 1.7 x 1.2 cm with maximal SUV of 3.4 consistent with respo nse to treatment of the primary non-small cell lung cancer. There is a poorly defined region of airsp xavier disease more laterally in the posterior segment of the right upper lobe with combination of conso lidation, linear opacities and lucent airspace related to emphysema. The largest contiguous soft tiss ue density measures approximately 2.0 x 1.5 cm with maximal SUV of 3.5. Additional small poorly defin ed region of predominantly linear and groundglass opacities at the left apex with maximal SUV of 3.1. Linear band of discoid atelectasis extending caudally along the anterior margin of the right lower l obe along the major fissure. A few scattered bilateral calcified pulmonary nodules along with calcifi ed bilateral hilar and mediastinal lymph nodes consistent with old granulomatous disease. Heart size is normal. Atherosclerotic coronary artery calcification. No pericardial or pleural effusion. Thoraci c aorta is normal in caliber. No pathologically enlarged or abnormally FDG avid thoracic lymph nodes. Left internal jugular central venous port catheter with distal tip in the high right atrium. Abdomen/pelvis/proximal thighs: Physiologic renal accumulation and excretion of FDG activity in the kidneys, bladder and along portio ns of ureters. Low-attenuation photopenic bilateral renal cysts the largest on the left measuring 6 c m. Normal degree and heterogenous pattern of increased uptake throughout the liver without radiologic correlate or dominant FDG avid lesion. Large calcified gallstone at the neck of the otherwise normal gallbladder. The pancreas, spleen and bilateral adrenal glands are normal. Mild uptake scattered thr oughout the bowels without radiologic correlate, also likely physiologic. Normal appendix. Prostatome tashia. No free intraperitoneal gas or fluid. No other abnormal foci of increased FDG uptake or pathol ogically enlarged lymphadenopathy in the abdomen, pelvis or proximal thighs. Musculoskeletal: Severe cervical and mild to moderate thoracic and lumbar spondylosis
[2020-12-22 13:13] LABS: Glucose Point of Care 95 mg/dl (65-105)
== END 2020-12-22 12:30 | disposition home or self-care (01) ==
LOC: ANHIMG 12:33
PROVIDERS: PCP Family Medicine; Visit Provider Internal Medicine Hematology & Oncology
DX: Z03.89 Encounter for observation for other suspected diseases and conditions ruled out (principal); C34.11 Malignant neoplasm of upper lobe, right bronchus or lung; K80.20 Calculus of gallbladder without cholecystitis without obstruction
CPT/HCPCS: 78815; A9552

== ENCOUNTER 2021-03-16 09:23 | Outpatient (CLI) | payer MEDICARE, BC, SELFPAY ==
--- NOTE | ~2021-03-16 | CT_ITS ---
EXAMINATION: CT diagnostic chest w con EXAM DATE: 03/16/2021 09:50 INDICATION: Non Small Cell Cancer Of Right Lung . TECHNIQUE: Spiral CT of the chest following intravenous injection of 75 mL Omnipaque 350. Axial, cor onal and sagittal images of the chest were reviewed. Coronal maximum intensity pixel images of chest reviewed. The dose-length product (DLP) for this examination was 877.66 mGy-cm. The exposure was t ailored according to patient size (auto mA exposure control), and iterative reconstruction (ASIR) was used as additional dose reduction technique. Comparison is made to prior examination from 10/23/2020. FINDINGS: There is a left-sided portacatheter. Right suprahilar spiculated nodule has demonstrated c ontinued interval decrease in size, measures 1.5 x 1.2 cm (previously 2.5 x 1.5 cm). Development of s ome volume loss some other more peripheral airspace disease probably radiation fibrosis. There are n o pleural or pericardial effusions. Tracheobronchial tree is patent. There is no mediastinal, hil ar or axillary lymphadenopathy. There is no pneumothorax. Heart normal in size. There is mild c oronary arterial calcification, arterial sclerosis. There is 9 mm left liver lobe medial segmental h ypodensity unchanged, probably a cyst. There is 2 cm gallstone. There is thoracic spondylosis withou t osteoblastic or osteolytic lesions identified. IMPRESSION: Continued decrease in size of right suprahilar treated malignancy. Reviewed, dictated and finalized at location A. W MACHINE TENDER
== END 2021-03-16 09:24 | disposition home or self-care (01) ==
LOC: ANHIMG 09:28
PROVIDERS: PCP Family Medicine; Visit Provider Internal Medicine Hematology & Oncology
DX: C34.91 Malignant neoplasm of unspecified part of right bronchus or lung (principal)
CPT/HCPCS: 71260; Q9967

== ENCOUNTER 2021-06-10 08:25 | Outpatient (CLI) | payer MEDICARE, BC, SELFPAY ==
--- NOTE | ~2021-06-10 | CT_ITS ---
EXAMINATION:CT diagnostic chest w con DATE: 06/10/2021 08:47 INDICATION: Non-small cell cancer of right lung. TECHNIQUE: Computed tomography (CT) of the chest was performed with 75 mL Omnipaque 350 intravenous c ontrast. Automated exposure control and iterative reconstruction technique were employed. The dose-le ngth product (DLP) was 667.63 mGy-cm. COMPARISON: Chest CT 03/16/2021, 04/27/20, 10/23/2020 FINDINGS: There are airspace and groundglass opacities in apical and posterior segments of right uppe r lobe with volume loss, consistent with malignancy and changes of radiation therapy. There are airsp xavier and groundglass opacities in left upper lobe, consistent with changes of radiation therapy. Calci fied pulmonary nodules and calcified hilar lymph nodes are consistent with old granulomatous disease. There is mild atelectasis in the inferior lungs. No pleural effusion. The heart size is normal. No p ericardial effusion. There are coronary artery calcifications. There is a 9 mm cyst in the liver. The re is a left internal jugular port with tip at superior cavoatrial junction. There is mild chronic he ight loss of multiple vertebral bodies. There is moderate thoracic spondylosis. IMPRESSION: 1. Stable airspace and groundglass opacities in apical and posterior segments of right upper lobe wit h volume loss, consistent with a combination of malignancy and changes of radiation therapy. Reviewed, dictated and finalized at location A. IMPRESSION: 1. Stable airspace and groundglass opacities in apical and posterior segments o f right upper lobe with volume loss, consistent with a combination of malignanc y and changes of radiation therapy.
== END 2021-06-10 08:26 | disposition home or self-care (01) ==
LOC: ANHIMG 08:30
PROVIDERS: PCP Family Medicine; Visit Provider Internal Medicine Hematology & Oncology
DX: C34.91 Malignant neoplasm of unspecified part of right bronchus or lung (principal); R91.8 Other nonspecific abnormal finding of lung field
CPT/HCPCS: 71260; Q9967

== ENCOUNTER 2021-09-06 10:01 | Outpatient (CLI) | payer MEDICARE, BC, SELFPAY ==
--- NOTE | ~2021-09-06 | CT_ITS ---
EXAMINATION: CT diagnostic chest wo con DATE: 09/06/2021 10:21 INDICATION: Non-small cell cancer right lung, restaging TECHNIQUE: Computed tomography (CT) of the chest was performed without intravenous contrast. Automate d exposure control and iterative reconstruction technique were employed. Exam dose: 679.86 mGy-cm to luna exam DLP. COMPARISON: 06/10/2021 CT chest FINDINGS: Left internal jugular Port-A-Cath catheter, the tip situated at the superior cavoatrial barbara ction. Stable right posterior apical and right posterior segment opacities, stable since 06/10/2021, p reviously attributed to a combination of malignancy and postoperative radiation change. Increased focal anterior left upper lobe postoperative radiation change. COPD. Old pulmonary granulomatous disease. Normal heart size. No pericardial or pleural effusion. Normal morphology of the adrenal glands. Cholelithiasis. Indeterminate small low-attenuation lesion of the anterior liver. 2.8 cm lateral upper pole left renal cyst. 9 mm upper pole right renal cyst. Diffuse idiopathic skeletal hyperostosis of the thoracic spine. IMPRESSION: Little interval change since 06/10/2021 Reviewed, dictated and finalized at Location A. Reviewed, dictated and finalized at location B.
== END 2021-09-06 10:02 | disposition home or self-care (01) ==
PROVIDERS: PCP Family Medicine; Visit Provider Internal Medicine Hematology & Oncology
DX: C34.91 Malignant neoplasm of unspecified part of right bronchus or lung (principal)
CPT/HCPCS: 71250

== ENCOUNTER 2021-12-07 09:22 | Outpatient (CLI) | payer MEDICARE, BC, SELFPAY ==
--- NOTE | ~2021-12-07 | CT_ITS ---
EXAMINATION: CT diagnostic chest w con DATE: 12/07/2021 09:51 INDICATION: Non-small cell cancer of the right lung TECHNIQUE: Transaxial computed tomographic images of the chest were obtained after the administration of 75 cc of Omnipaque 350 intravenous contrast. The dose-length product (DLP) was 604.57 mGy-cm. Ite rative reconstruction was used. COMPARISON: 09/06/2021 FINDINGS: There are chronic right perihilar upper lobe opacities without significant change. No pleur al effusion or pneumothorax. A left internal jugular Port-A-Cath ends with its tip in the proximal ri ght atrium. The heart size is normal. Calcified coronary artery atherosclerosis is noted. A stone is present in the nondistended gallbladder. There is a partially imaged cyst of the left kidney. A 10 mm cyst is noted in the right hepatic lobe. IMPRESSION: 1. Stable right perihilar upper lobe mass, consistent with malignancy and treatment change. Reviewed, dictated and finalized at location A. IMPRESSION: 1. Stable right perihilar upper lobe mass, consistent with malignancy and treat ment change.
== END 2021-12-07 09:23 | disposition home or self-care (01) ==
PROVIDERS: PCP Family Medicine; Visit Provider Internal Medicine Hematology & Oncology
DX: C34.91 Malignant neoplasm of unspecified part of right bronchus or lung (principal)
CPT/HCPCS: 71260; Q9967

== ENCOUNTER 2022-03-21 08:06 | Outpatient (CLI) | payer MEDICARE, BC, SELFPAY ==
--- NOTE | ~2022-03-21 | CT_ITS ---
EXAMINATION: CT diagnostic chest w con DATE: 03/21/2022 08:41 INDICATION: Non-small cell cancer of the right lung TECHNIQUE: Transaxial computed tomographic images of the chest were obtained after the administration of 75 cc of Omnipaque 350 intravenous contrast. The dose-length product (DLP) was 780.35 mGy-cm. Ite rative reconstruction was used. COMPARISON: 12/07/2021, 09/06/2021, 06/10/2021 FINDINGS: Again noted are perihilar right upper lobe opacities without significant change. A left int ernal jugular Port-A-Cath ends with its tip in the proximal right atrium. There are minimal opacities anteriorly in the left upper lobe without significant change but improved from 09/06/2021, likely inf ectious or inflammatory. No pleural effusion or pneumothorax. The heart size is normal. Calcified cor onary artery atherosclerosis is noted. There is a 3.2 cm cyst of the left kidney upper pole. A stone is present in the nondistended gallbladder. There is moderate thoracic spondylosis. There is mild chr onic anterior wedging of multiple thoracic vertebral bodies. IMPRESSION: 1. Right perihilar upper lobe mass without significant change, consistent with malignancy and treatme nt change. Reviewed, dictated and finalized at location B. [place] PRO[employer] MERCHANDISER IMPRESSION: 1. Right perihilar upper lobe mass without significant change, consistent with malignancy and treatment change.
[2022-03-21 08:32] LABS: Estimated Glomerular Filt Rate > 60
== END 2022-03-21 08:07 | disposition home or self-care (01) ==
PROVIDERS: PCP Family Medicine; Visit Provider Internal Medicine Hematology & Oncology
DX: C34.91 Malignant neoplasm of unspecified part of right bronchus or lung (principal); R91.8 Other nonspecific abnormal finding of lung field
CPT/HCPCS: 71260; Q9967

== ENCOUNTER 2022-04-12 09:30 | Outpatient (CLI) | payer MEDICARE, BC, SELFPAY ==
--- NOTE | ~2022-04-12 | CT_ITS ---
EXAMINATION: CT soft tissue neck w con DATE: 04/12/2022 10:07 INDICATION: Cervical lymphadenopathy. TECHNIQUE: Computed tomography (CT) of the neck was performed with 75 mL Omnipaque-350 intravenous co ntrast. Automated exposure control and iterative reconstruction technique were employed. The dose-kayli gth product was 555.46 mGy-cm. COMPARISON: Chest CT 03/21/2022, PET CT 12/22/2020 FINDINGS: The visualized portions of the lung apices demonstrate bilateral scarring. There is a 1.8 x 1.5 cm mass in superficial right parotid gland, stable from 12/22/2020. There is a 10 x 14 mm left m id internal jugular node. There is a 2.0 x 1.4 cm left subclavicular node. There is an increased numb er of normal-sized nodes in the left spinal accessory chain and left mid internal jugular chain nodes . There is mucosal thickening in sphenoid sinus. There is a left internal jugular port with tip not i ncluded. There is severe cervical spondylosis. IMPRESSION: 1. Left cervical lymphadenopathy, worsened from 12/22/20, consistent with metastatic disease. 2. Chronic 1.8 cm mass in right superficial parotid gland, consistent with a biopsy-proved Warthin tu mor. Reviewed, dictated and finalized at location A. OND POWDER TECHNICIAN IMPRESSION: 1. Left cervical lymphadenopathy, worsened from 12/22/20, consistent with metas tatic disease. 2. Chronic 1.8 cm mass in right superficial parotid gland, consistent with a bi opsy-proved Warthin tumor.
== END 2022-04-12 09:31 | disposition home or self-care (01) ==
PROVIDERS: PCP Family Medicine; Visit Provider Internal Medicine Hematology & Oncology
DX: R59.0 Localized enlarged lymph nodes (principal)
CPT/HCPCS: 70491; Q9967

== ENCOUNTER 2022-04-28 08:38 | Outpatient (CLI) | payer MEDICARE, BC, SELFPAY ==
--- NOTE | ~2022-04-28 | PE_ITS ---
EXAMINATION: PET skull to mid thigh DATE: 04/28/2022 11:03 INDICATION: Right-sided non-small cell lung cancer TECHNIQUE: Blood glucose level was 153 mg/dL. 10.53 mCi of 18-fluorodeoxyglucose (18-FDG) was adminis tered i.v. Low dose computed tomography (CT) images were acquired from the base of the brain to the p roximal thighs for attenuation correction and anatomic localization. Positron emission tomography (PE T) images were acquired in the same distribution beginning 50 minutes after injection. Images includi ng fused PET/CT images were reconstructed in axial, coronal, and sagittal planes. Automated exposure control technique was employed. The dose-length product was 966.41mGy-cm. COMPARISON: Neck CT dated 04/12/2022, Chest CT dated 03/31/2022 and PET/CT dated 12/22/2020 FINDINGS: Head/neck: There is symmetric increased activity in the oral cavity, laryngeal muscles and ocular muscles withou t CT correlate, likely physiologic. 1.7 x 1.3 cm right parotid mass with increased FDG uptake with ma ximal SUV of 12.5 consistent with a biopsy-proven Warthin's tumor. Smaller but similarly FDG avid nod ule in the left parotid measuring 12 x 6 mm with maximal SUV of 13.1 also most likely a second Warthi n's tumor. Both lesions are without significant interval change in size or FDG uptake since prior PET /CT dated 05/05/2020. There are several FDG avid lymph nodes in the left neck. The most intensely FDG avid is a left supraclavicular lymph node measuring 2.0 x 1.4 similar on the prior study which unable to be clearly differentiated from the adjacent muscles and vessels on the current noncontrast CT maynor ging but which demonstrates maximal FDG uptake of 12.4. There is a more caudal approximately 1.6 x 1. 3 cm left supraclavicular lymph node with maximal SUV of 20.7 which are concerning for metastatic dis ease. There are a few additional smaller lymph nodes in the left spinal accessory chain which remain within normal limits in size with minimal increased FDG uptake at the time of the most recent prior P ET/CT but the 3 most intense now demonstrating more significant FDG uptake with FDG value since 6.6, 7.8 and 10.5. No pathologically enlarged or abnormally FDG avid right cervical lymph nodes. Chest: Continued evolution of a region of likely postradiation scarring in the posterior segment of the righ t upper lobe. The previously 1.7 x 1.2 cm mass in the right upper lobe which have decreased in size a nd degree of FDG uptake, now abuts the superior right hilum limiting accurate assessment of size but subjectively appears unchanged to slightly decreased in size since the more recent PET/CT and remains without abnormally increased FDG uptake. Additional linear bands of atelectasis/scarring in the righ t upper lobe along the right major fissure remain without more concerning nodular soft tissue density or increased FDG uptake. There are few scattered bilateral small calcified pulmonary nodules and ciara cified bilateral hilar and mediastinal lymph nodes consistent with old granulomatous disease. No pneu monia, new noncalcified pulmonary nodules or pathologically enlarged or FDG avid thoracic lymphadenop athy. Heart size is normal. Atherosclerotic coronary artery calcification. No pericardial effusion. T horacic aorta is normal in caliber. The tip of a left internal jugular central venous port catheter i s located at the superior cavoatrial junction. Abdomen/pelvis/proximal thighs: Physiologic renal accumulation and excretion of FDG activity in the kidneys, bladder and along portio ns of ureters. Again seen are low-attenuation cysts without FDG activity at both kidneys measuring up to 6.1 cm in maximal diameter on the left. Normal degree and heterogenous pattern of increased uptak e throughout the liver without radiologic correlate or dominant FDG avid lesion. Large calcified gall stone at the neck of the otherwise normal-appearing gallbladder
[2022-04-28 09:25] LABS: Glucose Point of Care 153 mg/dl (65-105)
== END 2022-04-28 08:39 | disposition home or self-care (01) ==
PROVIDERS: PCP Family Medicine; Visit Provider Internal Medicine Hematology & Oncology
DX: R91.8 Other nonspecific abnormal finding of lung field (principal); C34.91 Malignant neoplasm of unspecified part of right bronchus or lung; R59.9 Enlarged lymph nodes, unspecified; K80.20 Calculus of gallbladder without cholecystitis without obstruction; N40.0 Benign prostatic hyperplasia without lower urinary tract symptoms
CPT/HCPCS: 78815; A9552

== ENCOUNTER 2022-06-06 11:39 | Outpatient (CLI) | payer MEDICARE, BC, SELFPAY ==
--- NOTE | ~2022-06-06 | US_ITS ---
EXAMINATION: US biopsy lymph node DATE: 06/06/2022 13:44 INDICATION: Left supraclavicular lymphadenopathy. TECHNIQUE: The procedure including the risks, benefits, and alternatives was discussed with the patie nt. Risks discussed included bleeding and infection. The patient understood the risks and agreed to p roceed. The skin overlying the left neck was prepped and draped in usual sterile fashion. Anesthetic was administered with 1% lidocaine subcutaneously. An 18 gauge core biopsy needle was then used to obtain 3 core biopsy specimens under continuous sonographic guidance. The entry site was cleaned and dressed. There were no immediate complications. FINDINGS: Ultrasound images demonstrate the needle in a 1.6 x 1.1 cm left supraclavicular lymph node. IMPRESSION: 1. Ultrasound-guided core needle biopsy of an enlarged left supraclavicular lymph node. Reviewed, dictated and finalized at location A. IMPRESSION: 1. Ultrasound-guided core needle biopsy of an enlarged left supraclavicular lym ph node.
== END 2022-06-06 11:40 | disposition home or self-care (01) ==
LOC: ANHIMG 11:40
PROVIDERS: PCP Family Medicine; Visit Provider Internal Medicine Hematology & Oncology
DX: C77.0 Secondary and unspecified malignant neoplasm of lymph nodes of head, face and neck (principal)
CPT/HCPCS: 38505; 76942; 88305; 88342

== ENCOUNTER 2022-08-16 09:05 | Outpatient (CLI) | payer MEDICARE, BC, SELFPAY ==
--- NOTE | ~2022-08-16 | PE_ITS ---
. EXAMINATION: PET skull to mid thigh DATE: 08/16/2022 11:03 INDICATION: Malignant neoplasm of upper lobe of right lung. TECHNIQUE: Blood glucose level was 158 mg/dL. 10.283 mCi of 18-fluorodeoxyglucose (18-FDG) was admini stered i.v. Low dose computed tomography (CT) images were acquired from the base of the brain to the proximal thighs for attenuation correction and anatomic localization. Automated exposure control was employed. Dose-length product (DLP) was 886 mGy-cm. Positron emission tomography (PET) images were ac quired in the same distribution. COMPARISON: PET/CT 04/28/2022, 05/05/20 FINDINGS: Head/neck: There is a 16 x 12 mm mass right parotid gland with maximum SUV of 15.8, consistent with b iopsy-proved Warthin tumor. There is an 11 x 6 mm mass in left parotid gland with maximum SUV of 10.1 , stable from 05/05/20, likely a Warthin tumor or benign mixed tumor. There are no pathologically enla rged lymph nodes. There is a left internal jugular port with tip in right atrium. Chest: There are airspace opacities with volume loss involving right upper lobe with mild activity wi th maximum SUV of 3.8 at right hilum. Calcified pulmonary nodules and calcified hilar and mediastinal lymph nodes are consistent with old granulomatous disease. There is mild radiation fibrosis in left upper lobe. No pleural effusion. The heart size is normal. There are coronary artery calcifications. No pericardial effusion. Abdomen/pelvis/proximal thighs: The liver is normal. There is a gallstone in the gallbladder, which i s normal in size. The spleen, pancreas, and adrenal glands are normal. There are cysts in the kidneys measuring up to 6.5 cm on the left. There is calcified atherosclerosis of the aorta and many of the other arteries. The prostate is mildly enlarged. There is diverticulosis of the colon without evidenc e of diverticulitis. There are no dilated loops of bowel. The appendix is normal. There are no pathol ogically enlarged lymph nodes. There is no free intraperitoneal fluid. There is a 7 mm mass mass in t he subcutaneous fat in right buttock with maximum SUV of 7.0. There is no osseous malignancy. IMPRESSION: 1. Stable airspace and groundglass opacities in right lung upper lobe with volume loss and mild activ ity, consistent with primary bronchogenic carcinoma and changes of radiation therapy. 2. Interval resolution of the previously seen left neck lymphadenopathy. 3. New 7 mm subcutaneous mass in the right buttock with increased activity, which may be inflammation or metastatic disease. Reviewed, dictated and finalized at location A. IMPRESSION: 1. Stable airspace and groundglass opacities in right lung upper lobe with volu me loss and mild activity, consistent with primary bronchogenic carcinoma and c hanges of radiation therapy. 2. Interval resolution of the previously seen left neck lymphadenopathy. 3. New 7 mm subcutaneous mass in the right buttock with increased activity, whi ch may be inflammation or metastatic disease.
[2022-08-16 09:27] LABS: Glucose Point of Care 158 mg/dl (65-105)
== END 2022-08-16 09:06 | disposition home or self-care (01) ==
LOC: ANHIMG 09:07
PROVIDERS: PCP Family Medicine; Visit Provider Internal Medicine Hematology & Oncology
DX: C34.11 Malignant neoplasm of upper lobe, right bronchus or lung (principal); R22.2 Localized swelling, mass and lump, trunk
CPT/HCPCS: 78815; A9552

== ENCOUNTER 2022-11-21 08:48 | Outpatient (CLI) | payer MEDICARE, BC, SELFPAY ==
--- NOTE | ~2022-11-21 | CT_ITS ---
EXAMINATION: CT soft tissue neck chest w DATE: 11/21/2022 09:25 INDICATION: Malignant neoplasm of upper lobe of right lung. TECHNIQUE: Computed tomography (CT) of the neck and chest was performed with 75 mL Omnipaque-350 intr avenous contrast. Automated exposure control and iterative reconstruction technique were employed. Th e dose-length product was 1221.84 mGy-cm. COMPARISON: neck CT 04/12/22, chest CT 03/21/22, PET/CT 05/05/20 FINDINGS: CT NECK: There is a 1.7 x 1.3 cm hyperenhancing mass in right parotid gland that measured 2.1 x 1.7 c m on 05/05/20. There are no pathologically enlarged lymph nodes. There is a left internal jugular port with tip at the superior cavoatrial junction. There is plaque in the proximal internal carotid arter ies with 0% stenosis relative to normal distal artery lumen diameters. There is severe cervical spond ylosis. CT CHEST: There are airspace and groundglass opacities with volume loss involving the posterior right upper lobe and anterior left upper lobe, consistent with radiation fibrosis. Calcified pulmonary nod ules and calcified hilar and mediastinal lymph nodes are consistent with old granulomatous disease. T here is mild scarring at left lung base. No pleural effusion. The heart size is normal. There are cor onary artery calcifications. No pericardial effusion. There is chronic anterior wedging of multiple t horacic vertebral bodies. There is mild thoracic spondylosis. IMPRESSION: 1. No specific evidence of metastatic disease. 2. Chronic 1.7 cm mass in right parotid gland, consistent with biopsy-proved Warthin tumor. Reviewed, dictated and finalized at location A. IMPRESSION: 1. No specific evidence of metastatic disease. 2. Chronic 1.7 cm mass in right parotid gland, consistent with biopsy-proved Wa rthin tumor.
[2022-11-21 09:11] LABS: Estimated Glomerular Filt Rate 54
== END 2022-11-21 08:49 | disposition home or self-care (01) ==
PROVIDERS: PCP Family Medicine; Visit Provider Internal Medicine Hematology & Oncology
DX: C34.11 Malignant neoplasm of upper lobe, right bronchus or lung (principal); D11.0 Benign neoplasm of parotid gland
CPT/HCPCS: 70491; 71260; Q9967

== ENCOUNTER 2023-02-20 08:02 | Outpatient (CLI) | payer MEDICARE, BC, SELFPAY ==
--- NOTE | ~2023-02-20 | CT_ITS ---
Clinical Indication: Lung cancer CT Scan of the Chest with Contrast: Technique: Contiguous sections were acquired throughout the chest after intravenous administration of 150 cc of Omnipaque 350. Dose reduction technique was used on this scan by utilizing automated expos ure control and iterative reconstruction technique. The dose-length product (DLP) was 698.51 mGy-cm. COMPARISON: 11/21/2022 Findings: There is no evidence of any significant mediastinal, hilar or axillary lymphadenopathy. There is no f illing defect in the pulmonary arterial tree to suggest pulmonary embolus. There is no evidence of ao rtic dissection or aneurysm. There is no evidence of pleural or pericardial effusion. There is stable probable postradiation change in the superior segment right lower lobe and right neal hilar region, and focally in the anteromedial left upper lobe. Stable mild soft tissue thickening at the right hilar region with calcifications present. Several calcified pulmonary granulomas are again present. Images through the upper abdomen reveal large calcified gallstone. Impression: Stable probable postradiation change in the lungs, as detailed above. No evidence for active malignan cy or metastatic disease. No change from prior exam. Cholelithiasis. Reviewed, dictated and finalized at location . GRATION ASSISTANT Impression: Stable probable postradiation change in the lungs, as detailed above. No eviden ce for active malignancy or metastatic disease. No change from prior exam. Cholelithiasis.
--- NOTE | ~2023-02-20 | CT_ITS ---
EXAMINATION: CT pelvis w con DATE: 02/20/2023 08:51 INDICATION: Right buttock mass. Malignant neoplasm of upper lobe, right lung. TECHNIQUE: Computed tomography (CT) of the pelvis was performed with 150 mL Omnipaque 350 intravenous contrast. Automated exposure control and iterative reconstruction technique were employed. The dose- length product was 965.87 mGy-cm. COMPARISON: CT abdomen and pelvis 12/14/2020 FINDINGS: There are cysts in the kidneys measuring up to 6.2 cm on the left. There is calcified ather osclerosis of the aorta and many of the other arteries. There is diffuse bladder wall thickening, lik bruno secondary to chronic outlet obstruction from the mildly enlarged prostate. There are no dilated l oops of bowel. The appendix is normal. There is severe lumbar spondylosis. There are stable small scl erotic lesions in left ilium and right sacral ala, likely benign. IMPRESSION: 1. No abnormal buttock mass. Reviewed, dictated and finalized at location A. S SERVICE COORDINATOR
[2023-02-20 08:33] LABS: Estimated Glomerular Filt Rate 60
== END 2023-02-20 08:03 | disposition home or self-care (01) ==
PROVIDERS: PCP Family Medicine; Visit Provider Radiology Radiation Oncology
DX: C34.11 Malignant neoplasm of upper lobe, right bronchus or lung (principal); K80.20 Calculus of gallbladder without cholecystitis without obstruction
CPT/HCPCS: 71260; 72193; Q9967

== ENCOUNTER 2023-03-07 09:41 | Outpatient (CLI) | payer MEDICARE, BC, SELFPAY ==
--- NOTE | ~2023-03-07 | CT_ITS ---
EXAMINATION: CT soft tissue neck w con DATE: 03/07/2023 10:19 INDICATION: Malignant neoplasm of upper lobe, right lung. TECHNIQUE: Computed tomography (CT) of the neck was performed with 75 mL Omnipaque-350 intravenous co ntrast. Automated exposure control and iterative reconstruction technique were employed. The dose-kayli gth product was 644.90 mGy-cm. COMPARISON: Neck CT 11/21/2022 FINDINGS: There is mild emphysema. There are airspace and groundglass opacities with volume loss invo lving the posterior right upper lobe and anterior left upper lobe, consistent with radiation fibrosis . Calcified right hilar and mediastinal lymph nodes are consistent with old granulomatous disease. Th ere is a 1.7 cm mass in right parotid gland. Partially visualized is a left internal jugular port. Th ere is plaque in the proximal internal carotid arteries with 0% stenosis relative to normal distal ar billie lumen diameters. There is no cervical lymphadenopathy. There is mild mucosal thickening in left maxillary sinus. There is severe cervical spondylosis. IMPRESSION: 1. No specific evidence of metastatic disease. 2. Stable 1.7 cm mass in right parotid gland, consistent with biopsy-proven Warthin tumor. Reviewed, dictated and finalized at location E. SYSTEMS DEVELOPER IMPRESSION: 1. No specific evidence of metastatic disease. 2. Stable 1.7 cm mass in right parotid gland, consistent with biopsy-proven War thin tumor.
== END 2023-03-07 09:42 | disposition home or self-care (01) ==
PROVIDERS: PCP Family Medicine; Visit Provider Radiology Radiation Oncology
DX: C34.11 Malignant neoplasm of upper lobe, right bronchus or lung (principal)
CPT/HCPCS: 70491; Q9967

== ENCOUNTER 2023-06-23 08:15 | Outpatient (CLI) | payer MEDICARE, BC, SELFPAY ==
--- NOTE | ~2023-06-23 | CT_ITS ---
EXAMINATION: CT soft tissue neck chest w DATE: 06/23/2023 08:54 INDICATION: Malignant neoplasm of right lung upper lobe. TECHNIQUE: Computed tomography (CT) of the neck and chest was performed with 75 mL Omnipaque-350 intr avenous contrast. Automated exposure control and iterative reconstruction technique were employed. Th e dose-length product was 1779.53 mGy-cm. COMPARISON: CT neck 03/07/23, CT chest 02/20/23 FINDINGS: CT NECK: There is a 1.7 cm mass in the right parotid gland. There is plaque in the proximal internal carotid arteries with less than 50% stenosis relative to normal distal artery lumen diameters. There are no pathologically enlarged lymph nodes. There is severe cervical spondylosis. CT CHEST: Calcified pulmonary nodules and calcified hilar and mediastinal lymph nodes are consistent with old granulomatous disease. There are airspace opacities with volume loss and architectural disto rtion involving the upper lobes, consistent with radiation fibrosis. There is mild atelectasis bilate rally. No pleural effusion. The heart size is normal. No pericardial effusion. There are coronary art lily calcifications. Calcifications in the spleen are consistent with old granulomatous disease. There is a left internal jugular port with tip in proximal right atrium. There is mild chronic anterior we dging of multiple vertebral bodies. There is moderate thoracic spondylosis. IMPRESSION: 1. No specific evidence of metastatic disease. 2. Radiation fibrosis in the upper lobes. 3. Stable 1.7 cm mass in right parotid gland, consistent with biopsy-proven Warthin tumor. Reviewed, dictated and finalized at location A. IMPRESSION: 1. No specific evidence of metastatic disease. 2. Radiation fibrosis in the upper lobes. 3. Stable 1.7 cm mass in right parotid gland, consistent with biopsy-proven War thin tumor.
[2023-06-23 08:46] LABS: Estimated Glomerular Filt Rate > 60
== END 2023-06-23 08:16 | disposition home or self-care (01) ==
LOC: ANHIMG 08:18
PROVIDERS: PCP Family Medicine; Visit Provider Internal Medicine Hematology & Oncology
DX: C34.11 Malignant neoplasm of upper lobe, right bronchus or lung (principal)
CPT/HCPCS: 70491; 71260; Q9967

== ENCOUNTER 2023-11-06 08:31 | Outpatient (CLI) | payer MEDICARE, BC, SELFPAY ==
--- NOTE | ~2023-11-06 | CT_ITS ---
Clinical Indication: Lung cancer CT Scan of the Neck and Chest with Contrast: Technique: Contiguous sections were acquired throughout the chest after intravenous administration of 75 cc of Omnipaque 350. Dose reduction technique was used on this scan by utilizing automated exposu re control and iterative reconstruction technique. The dose-length product (DLP) was 1340.41 mGy-cm. COMPARISON: 06/23/2023 Findings: No cervical lymphadenopathy seen. Parapharyngeal fat preserved bilaterally. Stable 1.7 cm mass in the right parotid gland. Parotid and submandibular glands are otherwise unremarkable. Visuali zed aerodigestive tract unremarkable. Vascular structures enhance normally. There is no evidence of any significant mediastinal, hilar or axillary lymphadenopathy. There is no f illing defect in the pulmonary arterial tree to suggest pulmonary embolus. There is no evidence of ao rtic dissection or aneurysm. There is no evidence of pleural or pericardial effusion. There is stable consolidation with air bronchograms in the posterior aspect of the right upper lobe e xtending toward the hilum, suggestive of post radiation/post therapy change. There is new/increased s omewhat masslike consolidation in the medial left upper lobe abutting the mediastinum, measuring appr oximately 3.3 x 1.7 cm in extent (series 3 image 109 for example). Calcified left lower lobe granulom as are present. Images through the upper abdomen reveal calcified gallstone. Impression: Increasing masslike consolidation in the medial left upper lobe, which could reflect atelectasis vers us the possibility of neoplastic disease. Correlate clinically. Stable post radiation change in the right upper lobe. Stable right parotid gland mass. Cholelithiasis. Reviewed, dictated and finalized at location . Impression: Increasing masslike consolidation in the medial left upper lobe, which could re flect atelectasis versus the possibility of neoplastic disease. Correlate clini jacey. Stable post radiation change in the right upper lobe. Stable right parotid gland mass. Cholelithiasis.
[2023-11-06 08:52] LABS: Estimated Glomerular Filt Rate > 60
== END 2023-11-06 08:32 | disposition home or self-care (01) ==
PROVIDERS: PCP Family Medicine; Visit Provider Internal Medicine Hematology & Oncology
DX: C34.11 Malignant neoplasm of upper lobe, right bronchus or lung (principal); K80.20 Calculus of gallbladder without cholecystitis without obstruction
CPT/HCPCS: 70491; 71260; Q9967

== ENCOUNTER 2023-11-21 07:15 | Outpatient (CLI) | payer MEDICARE, BC, SELFPAY ==
--- NOTE | ~2023-11-21 | PE_ITS ---
EXAMINATION: PET skull to mid thigh DATE: 11/21/2023 09:49 INDICATION: Malignant neoplasm of upper lobe of right lung. TECHNIQUE: Blood glucose level was 114 mg/dL. 10.569 mCi of 18-fluorodeoxyglucose (18-FDG) was admini stered i.v. Low dose computed tomography (CT) images were acquired from the base of the brain to the proximal thighs for attenuation correction and anatomic localization. Automated exposure control was employed. Dose-length product (DLP) was 1351 mGy-cm. Positron emission tomography (PET) images were a cquired in the same distribution. 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 There are no pathol ogically enlarged lymph nodes. There is a 17 x 12 mm mass in right parotid gland with maximum SUV of 20.3, stable from 12/22/20, consistent with biopsy-proved Warthin tumor. There is a chronic 8 x 4 mm mass in left parotid gland with maximum SUV of 5.2, likely a benign mass such a Warthin tumor or jozef gn mixed tumor. There is a left internal jugular port with tip in proximal right atrium. Chest: There are airspace opacities with volume loss and architectural distortion involving right upp er lobe, consistent with radiation pneumonitis. There are airspace opacities in paramediastinal left upper lobe measuring 4.2 x 1.9 cm with maximum SUV of 16.8. Calcified pulmonary nodules and calcified hilar lymph nodes are consistent with old granulomatous disease. No pleural effusion. The heart size is normal. There are coronary artery calcifications. No pericardial effusion. There is increased act ivity in normal-sized bilateral hilar lymph nodes. There are suture anchors in left humeral head. Abdomen/pelvis/proximal thighs: There is a 6 mm cyst in the liver. There is a gallstone in the gallbl adder, which is normal in size. The spleen, pancreas, and adrenal glands are normal. There are cysts in the kidneys measuring up to 6.6 cm on the left. The prostate is mildly enlarged. There is divertic ulosis of the colon without evidence of diverticulitis. The appendix is normal. There are no dilated loops of bowel. There are no pathologically enlarged lymph nodes. There is no free intraperitoneal fl uid. There is calcified atherosclerosis of the aorta and many of the other arteries. There is no osse ous malignancy. IMPRESSION: 1. Airspace opacities with increased activity in left lung upper lobe, worsened from 06/23/2023, likel y radiation pneumonitis. 2. Normal-sized bilateral hilar lymph nodes with increased activity, probably reactive. Reviewed, dictated and finalized at location A. IMPRESSION: 1. Airspace opacities with increased activity in left lung upper lobe, worsened from 06/23/2023, likely radiation pneumonitis. 2. Normal-sized bilateral hilar lymph nodes with increased activity, probably r eactive.
[2023-11-21 08:00] LABS: Glucose Point of Care 114 mg/dl (65-105)
== END 2023-11-21 07:16 | disposition home or self-care (01) ==
LOC: ANHIMG 07:18
PROVIDERS: PCP Family Medicine; Visit Provider Internal Medicine Hematology & Oncology
DX: C34.11 Malignant neoplasm of upper lobe, right bronchus or lung (principal)
CPT/HCPCS: 78815; A9552

== ENCOUNTER 2024-02-20 07:34 | Outpatient (CLI) | payer MEDICARE, BC, SELFPAY ==
--- NOTE | ~2024-02-20 | CT_ITS ---
Clinical Indication: Lung cancer CT Scan of the Chest with Contrast: Technique: Contiguous sections were acquired throughout the chest after intravenous administration of 75 cc of Omnipaque 350. Dose reduction technique was used on this scan by utilizing automated exposu re control and iterative reconstruction technique. The dose-length product (DLP) was 604.56 mGy-cm. COMPARISON: 11/06/2023 Findings: There is no evidence of any significant mediastinal, hilar or axillary lymphadenopathy. There is no f illing defect in the pulmonary arterial tree to suggest pulmonary embolus. There is no evidence of ao rtic dissection or aneurysm. There is no evidence of pleural or pericardial effusion. There is increasing irregular masslike consolidation in the anteromedial left upper lobe abutting the left mediastinal border, measuring 4.0 x 2.7 cm (axial image 39). There is stable irregular consolid ation with air bronchograms in the right infrahilar region is suggestive chronic posttreatment change and/or post radiation change. Images through the upper abdomen reveal cholelithiasis. Impression: Increasing masslike lesion in the anteromedial upper lobe, now measuring 4.0 x 2.7 cm. This is suspic ious for neoplastic disease. Tissue sampling advised to establish a histologic diagnosis. Stable posttreatment change in the right infrahilar region. Reviewed, dictated and finalized at location . ARCH SCIENTIST Impression: Increasing masslike lesion in the anteromedial upper lobe, now measuring 4.0 x 2.7 cm. This is suspicious for neoplastic disease. Tissue sampling advised to e stablish a histologic diagnosis. Stable posttreatment change in the right infrahilar region.
[2024-02-20 09:13] LABS: Estimated Glomerular Filt Rate > 60
== END 2024-02-20 07:35 | disposition home or self-care (01) ==
PROVIDERS: PCP Family Medicine; Visit Provider Internal Medicine Hematology & Oncology
DX: C34.11 Malignant neoplasm of upper lobe, right bronchus or lung (principal)
CPT/HCPCS: 71260; Q9967

== ENCOUNTER 2024-03-14 08:27 | Outpatient (CLI) | payer MEDICARE, BC, SELFPAY ==
--- NOTE | 2024-02-29 14:04 | PC.NURSE ---
Pre Radiology instructions Report to the outpatient kodi vasquez on date 03/14/24 at time _9 am for procedure Time: _11 am___ YOU MAY BE MONITORED AT HOSPITAL FOR UP TO 4 HOURS AFTER YOUR PROCEDURE. A visitor will be allowed to accompany the patient into the hospital. You and your visitor will be asked to self-screen and do not enter if you have any COVID symptoms. A mask is OPTIONAL within the hospital. Patients are to have no food or drink 6 hours prior to procedure time Driving will be restricted after the procedure, you must have a person to drive you home. Labs will be drawn in preop area and once reviewed, you will be taken to radiology area for procedure. When the procedure is completed, you will be taken to outpatient where you will be monitored for several hours. You may have one visitor in this area. Other than holding anti-coagulants, patient may take other medication(s) as scheduled. Prior to your appointment date patients are instructed to hold anti-coagulants after discussing with ordering provider to stop. If unable to discontinue anti-coagulants please notify radiologist. ? No aspirin or warfarin (Coumadin) for 7 days prior to the procedure. ? No clopidogrel (Plavix), ticagrelor (Brilinta), prasugrel (Effient) or dabigatran (Pradaxa) for 5 days prior to the procedure. ? No rivaroxaban (Xarelto), apixaban (Eliquis), dipyridamole (Aggrenox or Persantine) or cilostazol (Pletal) for 2 days prior to the procedure. Medications to discontinue per physician: __ELIQUIS 2 DAYS PRE OP Date to take last dose: __03/11/24 Please leave all valuables, including medications, at home the day of procedure. The hospital will not accept responsibility for valuables. Wear comfortable, loose fitting clothing.? Follow any additional instructions given to you from ordering provider. Telephone instructions given to _PATIENT and asked if any additional questions and then verbalized understanding. Patient advised to call scheduling provider office or registration scheduling [phone] if any additional questions.
[2024-02-29 14:16] VITALS: BMI 31.1
--- NOTE | ~2024-03-14 | CT_ITS ---
I discussed the left lung upper lobe mass with the patient. We discussed that the mass may be radiati on pneumonitis or less likely malignancy in my opinion. After a discussion of the risks and benefits and alternatives with the patient, the patient elected to cancel the biopsy and follow the mass with periodic imaging. Reviewed, dictated and finalized at location A. AGER HEAD
[2024-03-14 09:05] VITALS: BP 119/80; PULSE 73; RESP 18; TEMP 36.1; O2SAT 100
[2024-03-14 09:36] LABS: Mean Platelet Volume 10.7 fl (7.4-10.4); Platelet Count Result 100 k/mm3 (150-375)
[2024-03-14 09:50] LABS: Prothrombin Time 13.9 Seconds (11.1-14.7)
[2024-03-14] MEDS: SODIUM CHLORIDE 0.9% IV 1,000 ML 30 ML IV CONT (10:08)
[2024-03-14 12:05] VITALS: BP 132/78; PULSE 70; RESP 16; O2SAT 100
--- NOTE | 2024-03-14 12:48 | SUR.PHASEII ---
Patient presented to Outpatient recovery at 1205 - procedure was not performed per pt decision. Pt can discharge home per MD Bernard.
== END 2024-03-14 12:17 | disposition home or self-care (01) ==
PROVIDERS: PCP Family Medicine; Referring Provider Internal Medicine Hematology & Oncology; Visit Provider Radiology Diagnostic Radiology
PROC: BB24ZZZ Computerized Tomography (CT Scan) of Bilateral Lungs (ICD-10-PCS; CPT 32408; principal; 2024-03-14 11:00)
DX: Z01.812 Encounter for preprocedural laboratory examination (principal); C34.91 Malignant neoplasm of unspecified part of right bronchus or lung; Z79.01 Long term (current) use of anticoagulants
CPT/HCPCS: 36415; 85049; 85055; 85610; 99199; J7030

== ENCOUNTER 2024-05-20 07:34 | Outpatient (CLI) | payer MEDICARE, BC, SELFPAY ==
--- NOTE | ~2024-05-20 | CT_ITS ---
CT diagnostic chest w con Ordering provider: Raul Garibay MD History: 73 years Male with . MAL ALIS UPPER LOBE RT LUNG . Comparison: February 20, 2024 Technique: CT chest with IV contrast. Radiation reduction technique utilized.The dose-length product was 578.09 mGy-cm. 75 mL Omnipaque 350 was given IV. Findings: VISUALIZED THORACIC INLET: Normal. MEDIASTINUM: Aorta/coronary arteries: Mild atheromatous disease. Heart/other: The heart is not enlarged. Lymph nodes: No mediastinal adenopathy. Left hilar lymphadenopathy is seen measuring 2.5 cm. Subcarin al lymph node measuring 9 mm is noted. LUNGS: Mass is seen in the left upper lobe which is slightly larger than the previous study. The mass measures 4.5 x 3.4 compared to 4 x 2.7 cm. The mass is infiltrating the fat in the prevascular area and appear closer to the aortic arch. The distance to the arch is 1.1 cm. . No effusions. No pneumoth orax. Atelectasis versus pneumonia in the right upper lobe posteriorly is seen extending to the right hilum. VISUALIZED UPPER ABDOMEN: Hypodensity seen in the left lobe of the liver unchanged. Cholelithiasis. B ilateral renal cysts. 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 Otherwise, the visualized upper abdomen is normal. MUSCULOSKELETAL: Soft tissues: The superficial soft tissues are normal. Bones: Age appropriate degenerative changes of the spine. IMPRESSION: Mass in the left upper lobe is slightly larger than the previous study. The mass is closer to the aor tic arch and then previous study. Left hilar lymphadenopathy. Right upper lobe atelectasis versus pneumonia. Cholelithiasis. 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 Further evaluation advised. Bilateral cysts. Reviewed, dictated and finalized at location A. IMPRESSION: Mass in the left upper lobe is slightly larger than the previous study. The mas s is closer to the aortic arch and then previous study. Left hilar lymphadenopathy. Right upper lobe atelectasis versus pneumonia. Cholelithiasis. 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 Further evaluation advised. Bilateral cysts.
--- OUTSIDE RECORDS SUMMARY | 2024-05-20 07:40 | XMS_ITS | Clinical Summary ---
Author Organization [facility] Address [address] [place] [address] Care Team Providers Care Non Destructive Testing Technician Name Role Phone AddisonDenice vasquezkalani REID Primary Care Provider [phone] Allergies Active Allergy Reactions Criticality Noted Date Comments Penicillin V Rash Low 04/29/2020 Medications losartan-hydroCHLO ROthiazide (HYZAAR) 50-12.5 mg tablet losartan 50 mg-hydrochlorothi azide 12.5 mg tablet Active VENTOLIN HFA 90 mcg/actuation inhaler 02/28/20 20 Active Eliquis 5 mg tablet 01/26/20 21 Active Jublia 10 % Solution With Applicator 05/04/19 22 Active loratadine (CLARITIN) 10 mg tablet Take 10 mg by mouth daily. Active oxyCODONE (ROXICODONE) 5 mg tabletIndications: Non-small cell cancer of left lung (CMS/HCC) Take 1 Tablet (5 mg) by mouth every 4 hours as needed for Pain. Max Daily Amount: 30 mg 90 Tablet 06/14/19 23 Active LORazepam (ATIVAN) 1 mg tabletIndications: For claustrophobia with daily neck radiaton. Take 1 Tablet (1 mg) by mouth one time for 1 dose. 6 Tablet 07/12/19 23 Active silver sulfADIAZINE (SILVADENE) 1 % Cream Apply to affected area 2 times daily. 400 Gram 07/12/19 23 Active LORazepam (ATIVAN) 1 mg tabletIndications: Non-small cell cancer of left lung (CMS/HCC) Take 1 Tablet (1 mg) by mouth one time for 30 doses. 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 Resolved Problems Problem Noted Date Diagnosed Date Resolved Date Mass of upper lobe of right lung 04/29/2020 06/16/2020 Encounters Date Type Department Care Team Description 05/01/2024 External Device Data STL ABSTRACTION Provider, Abstract 05/01/2024 External Device Data STL ABSTRACTION Provider, Abstract 04/09/2024 External Device Data STL ABSTRACTION Provider, Abstract 03/28/2024 4:30 PM CAB STATION ATTENDANT Telephone Check Up [facility] Oncology and Hematology [facility] [address] [place] [address] Raul Garibay MD Malignant neoplasm of upper lobe of right lung (CMS/HCC) (Primary Dx) 02/27/2024 11:00 AM CAB STATION ATTENDANT Office Visit [facility] Oncology and Hematology [facility] [address] [place] [address] Raul Garibay MD Malignant neoplasm of upper lobe of right lung (CMS/HCC) (Primary Dx); Non-small cell cancer of right lung (CMS/HCC) 02/27/2024 Orders Only [facility] Oncology and Hematology [address] [place] [address] Raul Garibay MD 02/20/2024 Orders Only [facility] Oncology and Hematology [place] [address] [place] [address] Raul Garibay MD from Last 3 Months Family History Medical History Relation Name Comments Heart Disease Father Cancer Mother Lung Cancer Mother Relation Name Status Comments Father Mother Sister Alive Son 1 Alive Son 2 Alive Social History Tobacco Use Types Packs/Day Years Used Date Smoking Tobacco: Former Cigarettes Q uit: 03/13/2019 Smokeless Tobacco: Former Chew Tobacco Cessation:Counseling Given: Not Answered Alcohol Use Standard Drinks/Week Comments Not Currently 0 (1 standard drink = 0.6 oz pur e alcohol) occasional/ social Sex and Gender Information Value Date Recorded Sex Assigned at Not on file Legal Sex Male 2:16 PM CAB STATION ATTENDANT Gender Identity Not on file Sexual Orientation Not on file Last Filed Vital Signs Vital Sign Reading Time Taken Comments Blood Pressure 118/66 02/27/2024 10:52 AM CAB STATION ATTENDANT Pulse 75 02/27/2024 10:52 AM CAB STATION ATTENDANT Temperature 36.7 C (98.1 F) 02/27/2024 10:52 AM CAB STATION ATTENDANT Respiratory Rate 16 02/27/2024 10:52 AM CAB STATION ATTENDANT Oxygen Saturation 97% 02/27/2024 10:52 AM CAB STATION ATTENDANT Inhaled Oxygen Concentration - - Weight 110.7 kg (244 lb) 02/27/2024 10:52 AM CAB STATION ATTENDANT Height 180.3 cm (5' 11 ) 12/14/2021 10:07 AM CDT Body Mass Index 34.03 12/14/2021 10:07 AM CDT Plan of Treatment Upcoming Encounters Date Type Department Care Team (Late st Contact Info) Description 05/27/2024 8:30 AM CDT Office Visit [facility] Oncology and Hematology [facility] [address] [facility] [address] [place] [address] Raul Garibay MD [address] [facility] [address] [place] [address] Health Maintenance Due Date Last Done Comments DTAP/TDAP/TD VACCINES (1 - Tdap) 1969 Traditional Medicare (ACO) Annual Wellness Visit 07/19 COLORECTAL SCREENING 07/20/1995 Colorectal Cancer Screening 07/20/1995 FIT-DNA Q 3 years 07/20/1995 FIT/FOBT Q 1 year 07/20/1995 Flex Sig/CT Colonography Q 5 years 07/20/1995 PNEUMOCOCCAL VACCINE 50+ YEARS (1 of 1 - PCV) 07/20/19 01 ZOSTER VACCINE (1 of 2) 2000 Abdominal Aortic Aneurysm (AAA) Screening 07/20/2015 INFLUENZA VACCINE (#1) 2023 RSV VACCINE (60+ or ) (1 - 1-dose 75+ series) 2025 Procedures Procedure Name Priority Date/Time Associated Diagnosis Comments BASIC METABOLIC PANEL Routine 02/27/2024 2:19 PM CAB STATION ATTENDANT CBC WITH DIFFERENTIAL Routine 02/27/2024 1:59 [address] CT CHEST W CONTRAST Routine 02/20/2024 12:42 PM CAB STATION ATTENDANT from Last 3 Months Results * BASIC METABOLIC PANEL (02/27/2024 2:19 PM CAB STATION ATTENDANT) Blood Raul Garibay MD CHEMISTRY ORDERABLES Final Resu lt * CBC WITH DIFFERENTIAL (02/27/2024 1:59 PM CAB STATION ATTENDANT) Blood Raul Garibay MD HEMATOLOGY ORDERABLES Final Res ult * CT CHEST W CONTRAST (02/20/2024 12:42 PM CAB STATION ATTENDANT) Anatomical Region Laterality Modality Chest Other Raul Garibay MD CT ORDERABLES Final Result from Last 3 Months Insurance MEDICARE PART A AND B [facility] [employer] ACCESS CHOICE Care Teams Non Destructive Testing Technician Relationship Specialty Start Date End Date Marko Ivy DO [address] [place] [id number] PCP - General Family Practice 03/25/21
--- OUTSIDE RECORDS SUMMARY | 2024-05-20 07:40 | XMS_ITS | Encounter Summary ---
Author Organization [facility] Address [address] [place] [address] Care Team Providers Care Cable Installer Repairer Helper Name Role Phone Marko Ivy DO Primary Care Provider [phone] Encounter Details Date Type Department Care Team (Late Contact Info) Description 05/20/2020 Chart Note [facility] Radiation Therapy [address] [place] [address] [place] [address] [place] [address] Social History Tobacco Use Types Packs/Day Years Used Date Smoking Tobacco: Every Day Cigarettes Smokeless Tobacco: Former Chew Alcohol Use Standard Drinks/Week Comments Not Currently 0 (1 standard drink = 0.6 oz pur e alcohol) occasional/ social Sex and Gender Information Value Date Recorded Sex Assigned at Not on file Legal Sex Male 2:16 PM PRINT MANAGER Gender Identity Not on file Sexual Orientation Not on file COVID-19 Exposure Response Date Recorded In the last month, have you been in contact with someone who was confirmed or suspected to have Coronavirus / COVID-19? No / Unsure 05/14/2020 8:24 AM PRINT MANAGER documented as of this encounter Plan of Treatment Upcoming Encounters Date Type Department Care Team (Late st Contact Info) Description 05/27/2024 8:30 AM CDT Office Visit [facility] Oncology and Hematology - [place] [address] [facility] [address] [place] [address] Raul Garibay MD [address] [facility] [address] [place] [address] documented as of this encounter Visit Diagnoses Not on filedocumented in this encounter Care Teams Cable Installer Repairer Helper Relationship Specialty Start Date End Date Marko Ivy DO [address] [place] [id number] PCP - General Family Practice 03/25/21 documented as of this encounter
[2024-05-20 07:54] LABS: Estimated Glomerular Filt Rate 59
== END 2024-05-20 07:35 | disposition home or self-care (01) ==
PROVIDERS: PCP Family Medicine; Visit Provider Internal Medicine Hematology & Oncology
DX: C34.11 Malignant neoplasm of upper lobe, right bronchus or lung (principal)
CPT/HCPCS: 71260; Q9967

== ENCOUNTER 2024-06-07 08:34 | Outpatient (CLI) | payer MEDICARE, BC, SELFPAY ==
[2024-05-30 13:05] VITALS: BMI 31.0
--- NOTE | 2024-05-30 13:06 | PC.NURSE ---
Pre Radiology instructions Report to the outpatient kodi vasquez on date __06/07/24___ at time ___9:00AM____ for procedure Time: _11:00AM___ YOU MAY BE MONITORED AT HOSPITAL FOR UP TO 4 HOURS AFTER YOUR PROCEDURE. A visitor will be allowed to accompany the patient into the hospital. You and your visitor will be asked to self-screen and do not enter if you have any COVID symptoms. A mask is OPTIONAL within the hospital. Patients are to have no food or drink 6 hours prior to procedure time Driving will be restricted after the procedure, you must have a person to drive you home. Labs will be drawn in preop area and once reviewed, you will be taken to radiology area for procedure. When the procedure is completed, you will be taken to outpatient where you will be monitored for several hours. You may have one visitor in this area. Other than holding anti-coagulants, patient may take other medication(s) as scheduled. Prior to your appointment date patients are instructed to hold anti-coagulants after discussing with ordering provider to stop. If unable to discontinue anti-coagulants please notify radiologist. No aspirin or warfarin (Coumadin) for 7 days prior to the procedure. No clopidogrel (Plavix), ticagrelor (Brilinta), prasugrel (Effient) or dabigatran (Pradaxa) for 5 days prior to the procedure. No rivaroxaban (Xarelto), apixaban (Eliquis), dipyridamole (Aggrenox or Persantine) or cilostazol (Pletal) for 2 days prior to the procedure. Medications to discontinue per physician: __HOLD ELIQUIS 2 DAYS PRE-PROCEDURE Date to take last dose: ____06/04/24 Please leave all valuables, including medications, at home the day of procedure. The hospital will not accept responsibility for valuables. Wear comfortable, loose fitting clothing. Follow any additional instructions given to you from ordering provider. Telephone instructions given to ____PATIENT and asked if any additional questions and then verbalized understanding. Patient advised to call scheduling provider office or registration scheduling [phone] if any additional questions.
[2024-06-07] VITALS (9 sets, daily range): BP systolic 101–120; BP diastolic 68–78; PULSE 59–78; RESP 16–18; TEMP 36.5; O2SAT 95–100
--- NOTE | ~2024-06-07 | XR_ITS ---
EXAMINATION: XR chest 1V portable DATE: 06/07/2024 13:00 INDICATION: Left lung mass status post percutaneous biopsy. TECHNIQUE: A single frontal view of the chest was obtained. COMPARISON: Chest single view at 11:48 AM FINDINGS: There are airspace opacities in right upper lobe, consistent with radiation pneumonitis. Th ere is a mass in left lung upper lobe. No pleural effusion or pneumothorax. The heart size is normal. There is a left internal jugular port with tip at superior cavoatrial junction. There are suture anc hors in left humeral head. IMPRESSION: 1. Mass in left lung upper lobe suspicious for malignancy. 2. Radiation pneumonitis in right upper lobe. Reviewed, dictated and finalized at location A.
--- NOTE | ~2024-06-07 | XR_ITS ---
XR chest 1V portable 06/07/2024 14:33 Indication: Post image guided lung biopsy Procedure: AP portable chest Comparison: Comparison to multiple prior studies sequentially, with oldest reviewed study dated 04/24. Findings: Borderline heart size. Mild interstitial edema. Portacatheter tip in the SVC. No significan t effusion or pneumothorax. There is right upper lobe bandlike opacification, increased compared with prior study. Impression: 1: Borderline heart size with mild interstitial edema. 2: Increasing focal bandlike consolidation right upper thorax which may represent atelectasis or sup erimposed pneumonia. Reviewed, dictated and finalized at location A. Impression: 1: Borderline heart size with mild interstitial edema. 2: Increasing focal bandlike consolidation right upper thorax which may repres ent atelectasis or superimposed pneumonia.
--- NOTE | ~2024-06-07 | CT_ITS ---
EXAMINATION: CT biopsy lung w/imaging DATE: 06/07/2024 11:50 INDICATION: Left lung mass status post percutaneous biopsy. TECHNIQUE: The procedure including the risks, benefits, and alternatives and possibility of chest tub e placement were discussed with the patient. Risks discussed included infection, hemorrhage, approxim ately 1/3 risk of pneumothorax, approximately 1/10 risk of pneumothorax severe enough to warrant ches t tube placement, and rarely . The patient understood the risks and agreed to proceed. The patie nt was placed supine. The skin overlying the left chest was prepped and draped in sterile fashion. Anesthetic was administered with 1% lidocaine subcutaneously. A 19 gauge outer needle was advanced u nder CT guidance to the lesion of interest. A 20 gauge core biopsy needle was then used to obtain 3 c ore biopsy specimens. The needle was removed and the entry site was cleaned and dressed. The mA was a djusted according to patient size. Iterative reconstruction technique was employed. The dose-length p roduct was 264.43 mGy-cm. There were no immediate complications. FINDINGS: CT images demonstrate the outer needle tip in a 4.2 cm mass in left lung upper lobe. IMPRESSION: 1. CT-guided core needle biopsy of a 4.2 cm mass in left lung upper lobe. Reviewed, dictated and finalized at location A.
--- NOTE | ~2024-06-07 | XR_ITS ---
EXAMINATION: XR chest 1V DATE: 06/07/2024 11:54 INDICATION: Left lung upper lobe mass status post percutaneous biopsy. TECHNIQUE: A single frontal view of the chest was obtained. COMPARISON: Chest single view 05/21/2020, chest CT 05/20/2024 FINDINGS: There is a mass in left lung upper lobe. There are airspace opacities in right upper lobe, consistent with radiation pneumonitis. Calcified pulmonary nodules and calcified hilar lymph nodes ar e consistent with old granulomatous disease. No pleural effusion or pneumothorax. The heart size is n ormal. IMPRESSION: 1. Mass in left lung upper lobe suspicious for malignancy. 2. Radiation pneumonitis in right upper lobe. Reviewed, dictated and finalized at location A.
--- OUTSIDE RECORDS SUMMARY | 2024-06-07 08:49 | XMS_ITS | Encounter Summary ---
Author Organization [facility] Address [address] [place] [address] Care Team Providers Care Base Ply Hand Name Role Phone Marko Ivy DO Primary Care Provider Encounter Details Date Type Department Care Team (Late Contact Info) Description 05/20/2020 Chart Note [facility] Radiation Therapy [address] [place] [address] [place] [address] [place] [address] Social History Tobacco Use Types Packs/Day Years Used Date Smoking Tobacco: Every Day Cigarettes Smokeless Tobacco: Former Chew Alcohol Use Standard Drinks/Week Comments Not Currently 0 (1 standard drink = 0.6 oz pur e alcohol) occasional/ social Sex and Gender Information Value Date Recorded Sex Assigned at Not on file Legal Sex Male 2:16 PM ASSISTED SALES REPRESENTATIVE Gender Identity Not on file Sexual Orientation Not on file COVID-19 Exposure Response Date Recorded In the last month, have you been in contact with someone who was confirmed or suspected to have Coronavirus / COVID-19? No / Unsure 05/14/2020 8:24 AM ASSISTED SALES REPRESENTATIVE documented as of this encounter Plan of Treatment Upcoming Encounters Date Type Department Care Team (Late Contact Info) Description 06/20/2024 4:30 PM CDT Telephone Check Up [facility] Oncology and Hematology - [place] [address] [facility] [address] [place] [address] Raul Garibay MD [address] [facility] [address] [place] [address] documented as of this encounter Visit Diagnoses Not on filedocumented in this encounter Care Teams Base Ply Hand Relationship Specialty Start Date End Date Marko Ivy DO [address] [place] [address] PCP - General Family Practice 03/25/21 documented as of this encounter
--- OUTSIDE RECORDS SUMMARY | 2024-06-07 08:49 | XMS_ITS | Clinical Summary ---
Author Organization [facility] Address [address] [place] [address] Care Team Providers Care Firewood Cutter Name Role Phone AddisonDenice vasquezkalani REID Primary Care Provider [phone] Allergies Active Allergy Reactions Criticality Noted Date [...] Encounters Date Type Department Care Team Description 05/29/[address] [facility] Oncology and Hematology [facility] [address] [place] [address] Raul Garibay MD Biopsy 05/27/2024 8:30 AM CDT Office Visit [facility] Oncology [facility] [address] [place] [address] Raul Garibay MD Malignant neoplasm of upper lobe of right lung (CMS/HCC) (Primary Dx) 05/27/[address] [facility] Oncology [facility] [address] [place] [address] Raul Garibay MD Malignant neoplasm of upper lobe of right lung (CMS/HCC) (Primary Dx) 05/01/2024 External Device Data STL ABSTRACTION Provider, Abstract 05/01/2024 External Device Data STL ABSTRACTION Provider, Abstract 04/09/2024 External Device Data STL ABSTRACTION Provider, Abstract 03/28/2024 4:30 PM FORGE PRESS OPERATOR Telephone Check Up [facility] Oncology [facility] [address] [place] [id number] Raul Garibay MD Malignant neoplasm of upper lobe of right lung (CMS/HCC) (Primary Dx) from Last 3 Months Family History Medical [...] on file Legal Sex Male 2:16 PM FORGE PRESS OPERATOR Gender Identity Not on file Sexual Orientation Not on file Last Filed Vital Signs Vital Sign Reading Time Taken Comments Blood Pressure 154/90 05/27/2024 8:37 AM CDT Pulse 89 05/27/2024 8:34 AM CDT Temperature 36 C (96.8 F) 05/27/2024 8:34 AM CDT Respiratory Rate 15 05/27/2024 8:34 AM CDT Oxygen Saturation 96% 05/27/2024 8:34 AM CDT Inhaled Oxygen Concentration - - Weight 105.5 kg (232 lb 9.6 oz) 05/27/2024 8:34 AM CDT Height 180.3 cm (5' 11 ) 12/14/2021 10: 07 AM CDT Body Mass Index 32.44 12/14/2021 10:07 AM CDT Plan of Treatment Upcoming Encounters Date Type Department Care Team (Late st Contact Info) Description 06/20/2024 4:30 PM CDT Telephone Check Up [facility] Oncology and Hematology [facility] [address] [facility] [address] [place] [address] Raul Garibay MD [address] [facility] [address] [place] [address] Health Maintenance Due Date Last [...] Associated Diagnosis Comments BASIC METABOLIC PANEL Routine 05/27/2024 1:05 PM CDT CBC WITH DIFFERENTIAL Routine 05/27/2024 1:03 PM CDT from Last 3 Months Results * BASIC METABOLIC PANEL (05/27/2024 1:05 PM CDT) Blood Raul Garibay MD CHEMISTRY ORDERABLES Final Resu lt * CBC WITH DIFFERENTIAL (05/27/2024 1:03 PM CDT) Blood Raul Garibay MD HEMATOLOGY ORDERABLES Final Res ult from Last 3 Months Insurance MEDICARE PART A AND B [facility] [employer] ACCESS CHOICE Care Teams Firewood Cutter Relationship Specialty Start Date End Date Marko Ivy DO [address] [place] [address] PCP - General Family Practice 03/25/21
[2024-06-07 09:12] LABS: Immature Platelet Fraction Pct 6.3 % (0.9-11.2); Mean Platelet Volume 10.7 fl (7.4-10.4); Platelet Count Result 88 k/mm3 (150-375)
[2024-06-07 09:29] LABS: Prothrombin Time 13.3 Seconds (11.1-14.7)
--- NOTE | 2024-06-07 14:51 | SUR.PHASEII ---
Patient meets discharge criteria. MD notified and states patient is able to be discharged at this time.
== END 2024-06-07 15:00 | disposition home or self-care (01) ==
PROVIDERS: PCP Family Medicine; Referring Provider Internal Medicine Hematology & Oncology; Visit Provider Radiology Diagnostic Radiology
PROC: BB24ZZZ Computerized Tomography (CT Scan) of Bilateral Lungs (ICD-10-PCS; CPT 32408; principal; 2024-06-07 11:00)
DX: C34.11 Malignant neoplasm of upper lobe, right bronchus or lung (principal); J70.0 Acute pulmonary manifestations due to radiation
CPT/HCPCS: 32408; 36415; 71045; 85049; 85055; 85610; 88271; 88274; 88275; 88305; 88342

== ENCOUNTER 2024-07-02 11:30 | Outpatient (CLI) | payer MEDICARE, BC, SELFPAY ==
--- NOTE | ~2024-07-02 | PE_ITS ---
EXAMINATION: PET skull to mid thigh DATE: 07/02/2024 14:01 INDICATION: Right lung cancer 4 years prior TECHNIQUE: Blood glucose level was 99 mg/dL. 10.241 mCi of 18-fluorodeoxyglucose (18-FDG) was adminis tered i.v. Low dose computed tomography (CT) images were acquired from the base of the brain to the p roximal thighs for attenuation correction and anatomic localization. Positron emission tomography (PE T) images were acquired in the same distribution beginning 51 minutes after injection. Images includi ng fused PET/CT images were reconstructed in axial, coronal, and sagittal planes. Automated exposure control technique was employed. The dose-length product was 1265.35mGy-cm. 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 Increased uptake at the bilateral ocular muscles without CT correlate, likely physiologic. Again seen is increased up take with maximal SUV of 23.1 associated with an unchanged 1.8 cm right parotid mass consistent with biopsy-proven tumor. No pathologically enlarged cervical lymphadenopathy or suspicious foci of increa sed FDG uptake in the visualized head or neck. Chest: Left internal jugular central venous port catheter with distal tip at the superior cavoatrial junctio n. No abnormal uptake associated with a triangular region of consolidation seen in peripherally in th e posterior right upper lobe from the right hilum with some associated volume loss consistent with ra diation fibrosis related to treatment of a reported prior right lung cancer. 4.9 x 3.6 cm FDG avid an terior left upper lobe mass with maximal SUV of 20.5, spiculated margins, mediastinal invasion and wi th recent biopsy demonstrating squamous cell lung cancer. There is increased FDG uptake associated wi th the previously noted 2.5 cm left hilar lymph node with maximal SUV of 14.4 as well as a second lef t hilar lymph node located deeper between the left mainstem bronchus in the left main pulmonary arter y with maximal SUV of 12.1. There a few small foci of increased uptake at the left axilla without dereje dent enlarged lymph node more likely related to lymphatic uptake associated with the injection in the left upper extremity than to metastatic disease. Small calcified pulmonary nodules and calcified rig ht hilar lymph nodes consistent with old granulomatous disease. No pleural effusion. Heart size roxanne l. Atherosclerotic coronary artery calcific lesion. Minimal pericardial effusion. Thoracic aorta is n ormal in caliber. Abdomen/pelvis/proximal thighs: Physiologic renal accumulation and excretion of FDG activity in the kidneys, bladder and along portio ns of ureters. Prostatomegaly measuring 5 x 4.3 cm. Photopenic defects associated with bilateral low- attenuation renal cysts the largest exophytic cyst measuring 6.5 similar the lower poles of both the left and right kidneys. Large calcified gallstone in the otherwise normal-appearing gallbladder. Norm al degree and heterogenous pattern of increased uptake throughout the liver without radiologic correl ate or dominant FDG avid lesion. 1 cm low-attenuation hepatic cyst. The gallbladder, pancreas and sanam ateral adrenal glands are normal. A few small splenic calcific lesions consistent with old granulomat ous disease. Mild uptake scattered throughout the bowels without radiologic correlate, also likely ph ysiologic. Moderate diverticulosis along the descending and sigmoid colon without adjacent inflammato ry stranding to suggest diverticulitis. Normal appendix. No other abnormal foci of increased FDG upta ke or pathologically enlarged lymphadenopathy in the abdomen, pelvis or proximal thighs. Musculoskeletal: Suture anchors at the left humeral head likely related to prior rotator cuff repair. No suspicious FD G avid bone lesions to suggest metastatic disease. IMPRESSION: 1. Prominent increased uptake associated with the biopsied spiculated paramediastinal mass at the ant erior left upper lobe which demonstrated squamous cell carcinoma. 2. Increased FDG uptake associated with a couple left hilar lymph nodes consistent with metastatic di sease. 3. No abnormal uptake associated with a chronic region of likely radiation fibrosis in the posterior right upper lobe. 4. Small foci of increased uptake at the left axilla without corresponding lymph nodes which could be due to either hepatic uptake of extravasated activity left upper extremity injection or less likely atypical distribution of metastatic disease. 5. No change in a 1.7 cm FDG avid right parotid nodule with prior biopsy demonstrating benign Warthin 's tumors. Reviewed, dictated and finalized at location A. IMPRESSION: 1. Prominent increased uptake associated with the biopsied spiculated paramedia stinal mass at the anterior left upper lobe which demonstrated squamous cell ca rcinoma. 2. Increased FDG uptake associated with a couple left hilar lymph nodes consist ent with metastatic disease. 3. No abnormal uptake associated with a chronic region of likely radiation fibr osis in the posterior right upper lobe. 4. Small foci of increased uptake at the left axilla without corresponding lymp h nodes which could be due to either hepatic uptake of extravasated activity le ft upper extremity injection or less likely atypical distribution of metastatic disease. 5. No change in a 1.7 cm FDG avid right parotid nodule with prior biopsy demons trating benign Warthin's tumors.
[2024-07-02 12:33] LABS: Glucose Point of Care 99 mg/dl (65-105)
--- OUTSIDE RECORDS SUMMARY | 2024-07-02 13:28 | XMS_ITS | Clinical Summary ---
Author Organization [facility] Address [address] [place] [address] Care Team Providers Care Master Data Analyst Name Role Phone AddisonDenice vasquezkalani REID Primary Care Provider [phone] Allergies Active Allergy Reactions Criticality Noted Date [...] Encounters Date Type Department Care Team Description 06/26/2024 Orders Only [facility] Oncology and Hematology - Efren Cecy [id number] Raul Garibay MD 06/24/2024 Orders Only [facility] Oncology and Hematology [facility] [address] [place] [phone] Raul Garibay MD 06/20/2024 4:30 PM CDT Telephone Check Up [facility] Oncology and Hematology [facility] Cecy [address] [place] [id number] Raul Garibay MD Malignant neoplasm of upper lobe of right lung (CMS/HCC) (Primary Dx) 06/07/2024 Orders Only [facility] Oncology and Hematology [facility] Barry [address] [place] [phone] Raul Garibay MD 05/29/2024 Telephone [facility] Oncology and Hematology [facility] Cecy [address] [place] [phone] Raul Garibay MD Biopsy 05/27/2024 8:30 AM CDT Office Visit [facility] Oncology and Hematology [facility] Cecy [address] [place] [phone] Raul Garibay MD Malignant neoplasm of upper lobe of right lung (CMS/HCC) (Primary Dx) 05/27/2024 Orders Only [facility] Oncology and Hematology [facility] Barry [address] [place] [phone] Raul aGribay MD Malignant neoplasm of upper lobe of right lung (CMS/HCC) (Primary Dx) 05/01/2024 External Device Data STL ABSTRACTION Provider, Abstract 05/01/2024 External Device Data STL ABSTRACTION Provider, Abstract 04/09/2024 External Device Data STL ABSTRACTION Provider, Abstract from Last 3 Months Family History Medical [...] on file 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 Gender Identity Not on file Sexual Orientation [...] Care Team (Late st Contact Info) Description 07/16/2024 8:45 AM CDT Office Visit [facility] Oncology and Hematology - Efren [address] [facility] [address] [place] [address] Raul Garibay MD [address] [facility] [address] [place] [address] Health Maintenance Due Date Last Done Comments DTAP/TDAP/TD VACCINES (1 - Tdap) 1969 COLORECTAL SCREENING 07/20/1995 Colorectal Cancer Screening 07/20/1995 FIT-DNA Q 3 years 07/20/1995 FIT/FOBT Q 1 year 07/20/1995 Flex Sig/CT Colonography Q 5 years 07/20/1995 PNEUMOCOCCAL VACCINE 50+ YEARS (1 of 1 - PCV) 07/20/19 ZOSTER VACCINE (1 of 2) 2000 Abdominal Aortic Aneurysm (AAA) Screening 07/20/2015 INFLUENZA VACCINE (#1) 2023 RSV VACCINE (60+ or ) (1 - 1-dose 75+ series) 2025 Procedures Procedure Name Priority Date/Time Associated Diagnosis Comments PATHOLOGY Routine 06/14/2024 11:04 AM CDT PATHOLOGY Routine 06/07/2024 1:43 PM CDT XR CHEST LAT 1 VW Routine 06/07/2024 12:50 PM CDT BASIC METABOLIC PANEL Routine 05/27/2024 1:05 PM CDT CBC WITH DIFFERENTIAL Routine 05/27/2024 1:03 PM CDT from Last 3 Months Results * PATHOLOGY (06/14/2024 11:04 AM CDT) Only the most recent of2 resultswithin the time period is included. Tissue us Raul Garibay MD PATHOLOGY/CYTOLOGY ORDERABLES F inal Result * XR CHEST LAT 1 VW (06/07/2024 12:50 PM CDT) Anatomical Region Laterality Modality Chest Other us Raul Garibay MD DIAGNOSTIC IMAGING ORDERABLES F inal Result * BASIC METABOLIC PANEL (05/27/2024 1:05 PM CDT) Blood us Raul Garibay MD CHEMISTRY ORDERABLES Final Resu lt * CBC WITH DIFFERENTIAL (05/27/2024 1:03 PM CDT) Blood us Raul Garibay MD HEMATOLOGY ORDERABLES Final Res ult from Last 3 Months Insurance [facility] Provident Link ACCESS CHOICE Care Teams Master Data Analyst Relationship Specialty Start Date End Date Marko Ivy DO [address] [place] [address] PCP - General Family Practice 03/25/21
--- OUTSIDE RECORDS SUMMARY | 2024-07-02 13:28 | XMS_ITS | Encounter Summary ---
Author Organization [facility] Address [address] [place] [address] Care Team Providers Care Supervisor Mechanic Boilermaking Name Role Phone Marko Ivy DO Primary Care Provider [phone] Encounter Details Date Type Department Care Team (Late Contact Info) Description 05/20/2020 Chart Note [facility] Radiation Therapy [address] [place] [address] [place] [address] [place] [address] Social History Tobacco Use Types Packs/Day Years Used Date Smoking Tobacco: Every Day Cigarettes Smokeless Tobacco: Former Chew Alcohol Use Standard Drinks/Week Comments Not Currently 0 (1 standard drink = 0.6 oz pur e alcohol) occasional/ social Sex and Gender Information Value Date Recorded Sex Assigned at Not on file 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 No / Unsure 05/14/2020 8:24 AM SMALL ENGINE MECHANIC documented as of this encounter Plan of Treatment Upcoming Encounters Date Type Department Care Team (Late Contact Info) Description 07/16/2024 8:45 AM CDT Office Visit [facility] Oncology and Hematology - Efren [address] [facility] [address] [place] [address] Raul Garibay MD [address] [facility] [address] [place] [address] documented as of this encounter Visit Diagnoses Not on filedocumented in this encounter Care Teams Supervisor Mechanic Boilermaking Relationship Specialty Start Date End Date Marko Ivy DO [address] [place] [id number] PCP - General Family Practice 03/25/21 documented as of this encounter
--- OUTSIDE RECORDS SUMMARY | 2024-07-02 13:28 | XMS_ITS | Encounter Summary ---
Author Organization [facility] [employer] [facility] Address [address] [place] [address] Care Team Providers Care Logging Equipment Operator Name Role Phone Marko Ivy DO Primary Care Provider [phone] Encounter Details Date Type Department Care Team ([facility] Contact Info) Description 06/26/2024 Orders Only [facility] Oncology and Hematology [facility] [address] [place] [address] Raul Garibay MD [facility] [address] [place] [address] Social History Tobacco Use Types Packs/Day Years Used Date Smoking Tobacco: Former Cigarettes Q uit: 03/13/2019 Smokeless Tobacco: Former Chew Alcohol Use Standard Drinks/Week Comments Not Currently 0 (1 standard drink = 0.6 oz pur e alcohol) occasional/ social Sex and Gender Information Value Date Recorded Sex Assigned at Not on file 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 Gender Identity Not on file Sexual Orientation Not on file documented as of this encounter Plan of Treatment Upcoming Encounters Date Type Department Care Team ([facility] Contact Info) Description 07/16/2024 8:45 AM CDT Office Visit [facility] Oncology and Hematology - Efren Cecy [address] [place] [address] Raul Garibay MD [address] [facility] [address] [place] [address] documented as of this encounter Procedures Procedure Name Priority Date/Time Associated Diagnosis Comments PATHOLOGY Routine 06/14/2024 11:04 AM CDT documented in this encounter Results * PATHOLOGY (06/14/2024 11:04 AM CDT) Tissue us Raul Garibay MD PATHOLOGY/CYTOLOGY ORDERABLES F inal Result documented in this encounter Visit Diagnoses Not on filedocumented in this encounter Care Teams Logging Equipment Operator Relationship Specialty Start Date End Date Marko Ivy DO [address] [place] [address] PCP - General Family Practice 03/25/21 documented as of this encounter
== END 2024-07-02 11:31 | disposition home or self-care (01) ==
PROVIDERS: PCP Family Medicine; Visit Provider Internal Medicine Hematology & Oncology
DX: C34.11 Malignant neoplasm of upper lobe, right bronchus or lung (principal)
CPT/HCPCS: 78815; A9552

== ENCOUNTER 2024-09-06 05:52 | Emergency (ER) | payer MEDICARE, BC, SELFPAY ==
[2024-09-06 05:54] VITALS: BP 136/83; PULSE 69; RESP 18; TEMP 36.5; O2SAT 96
--- NOTE | 2024-09-06 06:05 | ED_ITS ---
HPI - Ear Problem General Chief complaint: Ear Stated complaint: bleeding ear Time Seen by Provider: 09/06/24 05:55 Source: patient Mode of arrival: ambulatory Limitations: no limitations History of Present Illness HPI Narrative: this is a 74-year-old male with history of lung cancer receiving chemotherapy wears hearing aids and was using a Q-tip to clean out his left ear canal, and was itching. Went to bed and woke up with some red blood from his left ear canal. Otherwise no nasal congestion no fever chills no shortness of breath no chest pain. No neurological deficits. Complaint: ear discharge Location: left ear Duration: resolved Severity: mild Relieving factors: nothing Context: Reports recent illness Related Data Home Medications ?Medication ?Instructions ?Recorded ?Confirmed ?Last Taken ?Type albuterol sulfate 90 mcg/actuation 2 inhalation inhalation Q4-6H PRN 11/12/19 07/17/24 Unknown History breath activated powder inhaler Dyspnea acetaminophen 500 mg tablet 1,000 mg PO PRN PRN pain 02/29/24 08/14/24 Unknown History (Acetaminophen Extra Strength) ipratropium bromide 21 mcg (0.03 2 spray intranasal BID PRN allergy 05/30/24 08/14/24 Unknown History %) nasal spray symptoms Allergies Allergy/AdvReac Type Severity Reaction Status Date / Time No Known Allergies Allergy Verified 09/06/24 06:08 Review of Systems Review of Systems: All systems reviewed & are unremarkable except as noted in HPI and below PMFSH Past Medical History Medical History Ureterolithiasis Right leg swelling Malignant neoplasm of upper lobe, right bronchus or lung Bronchogenic carcinoma Lung mass Cough Osteoarthritis Ear foreign body BRANDYN on CPAP History of DVT (deep vein thrombosis) COPD (chronic obstructive pulmonary disease) Hypertension Surgical History Surgical History History of shoulder surgery left History of left knee surgery Hx of tonsillectomy S/P hernia surgery Family History Family History Father Heart disease Mother Lung cancer Social History Social History Smoking packs per day: 0.5 Smoking cigarettes per day: 10.0 Years smoked: 50 Smoking pack-years: 25.00 Smoking status: Former smoker Tobacco type: cigarettes Smoking end date: 05/11/20 Additional smoking assessment comments: smoked less than 1/[address] opped Alcohol intake: current Substance use: never Lack of Transportation: No Lack of Food: Never True Current Housing: I Have Housing Concerned About Future Housing: No Difficulty Paying Gas/Electric Bills: No Difficulty Paying for Meds: No Currently Unemployed: No Education: High School Diploma/GED Difficulty w/ Childcare or Family Care: No Living arrangements: with family Additional living arrangements comments: . Enjoys Camping. 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 Gender identity (if verbalized by the patient): Male Spiritual care concerns: No Exam Const: General: healthy appearing Nutritional Appearance: well nourished Orientation/consciousness: patient oriented x3 Limitations: no limitations HENMT: Other: Perforated left tympanic membrane Eyes: Conjunctivae: conjunctivae normal Pupils: Equal, round and reactive pupils present Chest: Chest palpation & inspection: normal inspection of the chest Resp: Effort & Inspection: normal respiratory effort Auscultation: clear to auscultation bilaterally Cardio: Rate: regular rate Rhythm: regular rhythm GI: GI Palp: Yes Soft to palpation Auscultation: normal bowel sounds Neuro: General: patient oriented x3, moves all extremities, no meningeal signs and no focal motor deficits Course Course Emergency Course: after visualizing the left ear canal perforation of the tympanic membrane and will be sending antibiotic eardrops patient's local pharmacy. Vital Signs Vital signs: Vital Signs Temperature 36.5 C 09/06/24 05:54 Pulse Rate 09/06/24 05:54 Respiratory Rate 18 09/06/24 05:54 Blood Pressure 136/83 09/06/24 05:54 Pulse Oximetry 96 09/06/24 05:54 Oxygen Delivery Room Air 09/06/24 05:54 Temperature 36.5 C 09/06/24 05:54 Pulse Rate 09/06/24 05:54 Respiratory Rate 18 09/06/24 05:54 Blood Pressure 136/83 09/06/24 05:54 Pulse Oximetry 96 09/06/24 05:54 Oxygen Delivery Room Air 09/06/24 05:54 Medical Decision Making Vital Signs Vital Signs: Vital Signs Temperature 36.5 C 09/06/24 05:54 Pulse Rate 69 09/06/24 05:54 Respiratory Rate 18 09/06/24 05:54 Blood Pressure 136/83 09/06/24 05:54 Pulse Oximetry 96 09/06/24 05:54 Oxygen Delivery Room Air 09/06/24 05:54 Temperature 36.5 C 09/06/24 05:54 Pulse Rate 69 09/06/24 05:54 Respiratory Rate 18 09/06/24 05:54 Blood Pressure 136/83 09/06/24 05:54 Pulse Oximetry 96 09/06/24 05:54 Oxygen Delivery Room Air 09/06/24 05:54 Critical Care Time Critical Care Time Critical Care Time: No Discharge Plan Discharge Clinical Impression: Eardrum rupture, left Patient Disposition: Home Condition: Stable Instructions: Antibiotic Form Additional Instructions: advised patient to take antibiotic ear drops as prescribed and to follow with primary care physician within the next 3 to 5 days for further evaluation and treatment. Patient Language: Bangladeshi Prescriptions: New Cortisporin-TC 3.3-3-10-0.5 mg/mL drops,suspension 4 drp LEFT EAR TID 7 Days Qty: 10 0RF No Action meloxicam 7.5 mg tablet 7.5 mg PO DAILY Qty: 90 0RF alprazolam 0.25 mg tablet 0.25 mg PO BID PRN (Reason: anxiety) Qty: 20 0RF hydrocodone-acetaminophen 5-325 mg tablet 1 tablet PO Q8H PRN (Reason: pain) Qty: 20 0RF albuterol sulfate 90 mcg/actuation aerosol powdr breath activated 2 inhalation INHALATION Q4-6H PRN (Reason: Dyspnea) acetaminophen [Acetaminophen Extra Strength] 500 mg tablet 1,000 mg PO PRN PRN (Reason: pain) Patient Comments: . ipratropium bromide 21 mcg (0.03 %) spray,non-aerosol 2 spray intranasal BID PRN (Reason: allergy symptoms) Rx Instructions: administer into each nostril Eliquis 5 mg tablet See Rx Instructions .ROUTE .COMPLEX Qty: 180 1RF Dose Instruction: TAKE ONE TABLET BY MOUTH TWICE A DAY Rx Instructions: TAKE ONE TABLET BY MOUTH TWICE A DAY losartan-hydrochlorothiazide 50-12.5 mg tablet See Rx Instructions .ROUTE .COMPLEX Qty: 90 1RF Dose Instruction: TAKE ONE TABLET BY MOUTH DAILY Patient Comments: QAM Rx Instructions: TAKE ONE TABLET BY MOUTH DAILY Follow-up/Referrals: Marko Ivy DO [Primary Care Provider] - Time of Disposition: 06:09
== END 2024-09-06 06:15 | disposition home or self-care (01) ==
LOC: CHSED 06:09
PROVIDERS: Emergency Provider Emergency Medicine; PCP Family Medicine
DX: H72.92 Unspecified perforation of tympanic membrane, left ear (principal); J44.9 Chronic obstructive pulmonary disease, unspecified; I10 Essential (primary) hypertension; Z85.118 Personal history of other malignant neoplasm of bronchus and lung; Z87.891 Personal history of nicotine dependence
CPT/HCPCS: 99283

== ENCOUNTER 2024-11-04 08:42 | Outpatient (CLI) | payer MEDICARE, BC, SELFPAY ==
--- NOTE | ~2024-11-04 | CT_ITS ---
EXAMINATION: CT chest abdomen pelvis w con DATE: 11/06/2024 9:27 CDT INDICATION: HORTENCIA tyson the upper lobe. Right lung cancer TECHNIQUE: Computed tomography (CT) of the chest, abdomen, and pelvis was performed without intravenous contrast. The dose-length product was 1434.31 mGy-cm. COMPARISON: Head CT 07/02/2024; chest CT 05/20/2024; CT chest 04/27/2020 FINDINGS: CHEST CT: There is a 3.2 x 3.6 x 3.0 cm mass in the medial aspect of the left upper lung which abuts the pleura and adjacent osseous structures. No adjacent bony destruction.The finding is similar size and configuration as compared to the PET/CT study from 07/02/2024. There are a few nonenlarged mediastinal and hilar lymph nodes similar to the PET/CT study from 07/02/2024. Heart is mildly enlarged. There are a few coronary artery calcifications. Thoracic aorta is partially calcified but is not aneurysmal. Grossly stable moderate-sized consolidation with air bronchograms which extends from the right hilum hostess host iorly and medially. The finding is similar to the PET/CT study from 07/02/2024. There are a few new small patchy and groundglass opacities in the left lower lobe. Bones appear osteopenic. Multilevel degenerative change in the visualized spine. No pneumothorax. No pleural effusion. ABDOMEN/PELVIS CT: There is a too small to characterize low-attenuation lesion in the right lobe of the liver. The finding is stable dating back to 04/27/2020. The liver is otherwise unremarkable. Cholelithiasis. Bilateral renal cysts. Adrenal glands are unremarkable. Spleen is unremarkable. Pancreas is unremarkable. Abdominal aorta is partially calcified but is not aneurysmal. No enlarged lymph nodes in the abdomen. Prostate gland is moderately enlarged and partially calcified. Bladder is grossly unremarkable. No enlarged lymph nodes identified in the pelvis. Moderate amount of stool. No appendicitis. No colitis. Bones appear osteopenic. Multilevel degenerative change scattered throughout the visualized spine. IMPRESSION: 1. There is a 3.2 x 3.6 x 3.0 cm mass in the medial aspect of the left upper lung which abuts the pleura and adjacent osseous structures. No adjacent bony destruction.The finding is similar size and configuration as compared to the PET/CT study from 07/02/2024. 2. There are a few nonenlarged mediastinal and hilar lymph nodes similar to the PET/CT study from 07/02/2024. 3. Grossly stable moderate-sized consolidation with air bronchograms which extends from the right hilum posteriorly and medially. The finding is similar to the PET/CT study from 07/02/2024. 4. There are a few new small patchy and groundglass opacities in the left lower lobe. Differential includes inflammatory/infectious process or malignant process. A follow-up chest CT in 2-4 weeks is recommended to assess for interval change. 5.There is a too small to characterize low-attenuation lesion in the right lobe of the liver. The finding is stable dating back to 04/27/2020. Reviewed, dictated and finalized at location Q. IMPRESSION: 1. There is a 3.2 x 3.6 x 3.0 cm mass in the medial aspect of the left upper abdirahman ng which abuts the pleura and adjacent osseous structures. No adjacent bony meggan truction.The finding is similar size and configuration as compared to the PET/C T study from 07/02/2024. 2. There are a few nonenlarged mediastinal and hilar lymph nodes similar to the PET/CT study from 07/02/2024. 3. Grossly stable moderate-sized consolidation with air bronchograms which exte nds from the right hilum posteriorly and medially. The finding is similar to th e PET/CT study from 07/02/2024. 4. There are a few new small patchy and groundglass opacities in the left lower lobe. Differential includes inflammatory/infectious process or malignant proce ss. A follow-up chest CT in 2-4 weeks is recommended to assess for interval riki nge. 5.There is a too small to characterize low-attenuation lesion in the right lobe of the liver. The finding is stable dating back to 04/27/2020.
--- OUTSIDE RECORDS SUMMARY | 2024-11-04 09:03 | XMS_ITS | Encounter Summary ---
Author Organization [facility] Address [address] [place] [address] Care Team Providers Care Rn Immunology Name Role Phone Marko Ivy DO Primary Care Provider [phone] Encounter Details Date Type Department Care Team (Late Contact Info) Description 05/20/2020 Chart Note [facility] Radiation Therapy [address] [place] [address] [place] [address] [place] [address] Social History Tobacco Use Types Packs/Day Years Used Date Smoking Tobacco: Every Day Cigarettes Smokeless Tobacco: Former Chew Alcohol Use Standard Drinks/Week Comments Not Currently 0 (1 standard drink = 0.6 oz pur e alcohol) occasional/ social Sex and Gender Information Value Date Recorded Sex Assigned at Not on file Legal Sex Male 2:16 PM DIRECTOR 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 No / Unsure 05/14/2020 8:24 AM DIRECTOR PHARMACOLOGY documented as of this encounter Plan of Treatment Upcoming Encounters Date Type Department Care Team (Late Contact Info) Description 11/08/2024 11:[address] [facility] CT Scan [address] [address] Raul Garibay MD [address] [facility] [address] [place] [address] 11/26/2024 8:30 AM CDT Office Visit [facility] Oncology and Hematology - Efren [address] [facility] [address] [place] [address] Raul Garibay MD [address] [facility] [address] [place] [address] documented as of this encounter Visit Diagnoses Not on filedocumented in this encounter Care Teams Rn Immunology Relationship Specialty Start Date End Date Marko Ivy DO [address] [place] [address] PCP - General Family Practice 03/25/21 documented as of this encounter
--- OUTSIDE RECORDS SUMMARY | 2024-11-04 09:03 | XMS_ITS | Clinical Summary ---
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 Gender Identity Not on file Sexual Orientation Not on file Plan of Treatment Health Maintenance Due Date Last Done Comments Hepatitis C Screening ages 1 8 to 79 once 1950 YEARLY WELLNESS EXAM 1953 DEPRESSION SCREENING 1962 ADULT TETANUS 1969 LIPID TESTING 1985 Colon Cancer Screening 07/20/1995 Pneumococcal Vaccine: 50 and over (1 of 1 - PCV) 2000 Zoster Vaccine (Recombinant Vaccine) (1 of 2) 2000 Fall Risk Assessment 07/20/2015 COVID-19 Immunization (1 - 2 season) 2023 Influenza Vaccine 10/11/2024 RSV Vaccines (1 - 1-dose 75+ series) 2025 HEPATITIS A VACCINES Aged Out No long er eligible based on patient's age to complete this topic HEPATITIS B VACCINES Aged Out No long er eligible based on patient's age to complete this topic HIB VACCINES Aged Out No longer eligi ble based on patient's age to complete this topic HPV VACCINES Aged Out No longer eligi ble based on patient's age to complete this topic IPV VACCINES Aged Out No longer eligi ble based on patient's age to complete this topic MENINGOCOCCAL VACCINE Aged Out No olesya lindsay eligible based on patient's age to complete this topic Meningococcal B Vaccine Aged Out No l onger eligible based on patient's age to complete this topic ROTAVIRUS VACCINES Aged Out No longer eligible based on patient's age to complete this topic
--- OUTSIDE RECORDS SUMMARY | 2024-11-04 09:03 | XMS_ITS | Encounter Summary ---
Author Organization [facility] Address [address] [place] [address] Care Team Providers Care Beauty Operator Apprentice Name Role Phone Marko Ivy DO Primary Care Provider [phone] Encounter Details Date Type Department Care Team ([facility] Contact Info) Description 11/04/2024 Orders Only [facility] Oncology and Hematology - [address] [place] [address] Raul Garibay MD [address] [place] [phone] Malignant neoplasm of upper lobe of right lung (CMS/HCC); Benign hypertension Social History Tobacco Use Types Packs/Day Years Used Date Smoking Tobacco: Former Cigarettes Q uit: 03/13/2019 Smokeless Tobacco: Former Chew Alcohol Use Standard Drinks/Week Comments Not Currently 0 (1 standard drink = 0.6 oz pur e alcohol) occasional/ social Sex and Gender Information Value Date Recorded Sex Assigned at Not on file 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 Gender Identity Not on file Sexual Orientation Not on file documented as of this encounter Plan of Treatment Upcoming Encounters Date Type Department Care Team ([facility] Contact Info) Description 11/08/2024 11:00 AM CDT Appointment [facility] CT Scan Bella [address] [place], [place] [address] [place] [address] Raul Garibay MD [address] [place] [address] 11/26/2024 8:30 AM CDT Office Visit [facility] Oncology and Hematology - [address] [place] [address] Raul Garibay MD [address] [facility] [address] [place] [address] documented as of this encounter Visit Diagnoses Diagnosis Malignant neoplasm of upper lobe of right lung (CMS/HCC) Malignant neoplasm of upper lobe, bronchus or lung Benign hypertension Essential hypertension, benign documented in this encounter Care Teams Beauty Operator Apprentice Relationship Specialty Start Date End Date Marko Ivy DO [address] [place] [address] PCP - General Family Practice 03/25/21 documented as of this encounter
--- OUTSIDE RECORDS SUMMARY | 2024-11-04 09:03 | XMS_ITS | Clinical Summary ---
Author Organization [facility] Address [address] [place] [address] Care Team Providers Care Heel Stiffener Name Role Phone JerricaMarko denson Primary Care Provider [phone] Allergies Active Allergy Reactions Criticality Noted Date [...] for claustrophobia 2 Tablet 07/23/19 23 Active lidocaine-prilocai ne (EMLA) 2.5-2.5 % Cream Apply a quarter size amount to port site 30 minutes prior to access. 30 Gram 1 08/14/19 25 Active dexAMETHasone (DECADRON) 4 mg tablet Take 1 tablet by mouth BID day before, day of, day after treatment with Paclitaxel. 6 Tablet 6 08/14/19 25 Active ALPRAZolam (XANAX) 0.25 mg tablet Take 0.25 mg by mouth nightly as needed for Anxiety. 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 Resolved Problems Problem Noted Date Diagnosed Date Resolved Date Mass of upper lobe of right lung 04/29/2020 06/16/2020 Encounters Date Type Department Care Team Description 11/04/2024 Orders Only [facility] Oncology and Hematology [facility] [address] [place] [phone] Raul Garibay MD Malignant neoplasm of upper lobe of right lung (CMS/HCC); Benign hypertension 10/29/2024 External Device Data STL ABSTRACTION Provider, Abstract 10/21/2024 Orders Only [facility] Oncology and Hematology [facility] [address] [place] [address] Raul Garibay MD Malignant neoplasm of upper lobe of right lung (CMS/HCC); Benign hypertension 10/16/2024 8:30 AM CDT Office Visit [facility] Oncology and Hematology [facility] [address] [place] [address] Raul Garibay MD Malignant neoplasm of upper lobe of right lung (CMS/HCC) (Primary Dx) 10/16/2024 External Device Data STL ABSTRACTION Provider, Abstract 10/16/2024 Orders Only [facility] Oncology and Hematology [address] [place] [address] Raul Garibay MD 10/15/2024 External Device Data STL ABSTRACTION Provider, Abstract 10/07/2024 Orders Only [facility] Oncology and Hematology - [address] [place] [phone] Raul Garibay MD Malignant neoplasm of upper lobe of right lung (CMS/HCC); Benign hypertension 09/27/2024 Refill [facility] Oncology and Hematology - [address] [place] [phone] Raul Garibay MD 09/25/2024 8:30 AM CDT Office Visit [facility] Oncology and Hematology - [address] [place] [address] Raul Garibay MD Malignant neoplasm of upper lobe of right lung (CMS/HCC) (Primary Dx) 09/25/2024 External Device Data STL ABSTRACTION Provider, Abstract 09/25/2024 External Device Data STL ABSTRACTION Provider, Abstract 09/25/2024 Orders Only [facility] Oncology and Hematology - [address] [place] [phone] Raul Garibay MD 09/24/2024 External Device Data STL ABSTRACTION Provider, Abstract 09/23/2024 Orders Only [facility] Oncology and Hematology - [place] [place] [address] Raul Garibay MD Malignant neoplasm of upper lobe of right lung (CMS/HCC); Benign hypertension 09/09/2024 Orders Only [facility] Oncology and Hematology - [address] [place] [address] Raul Garibay MD Malignant neoplasm of upper lobe of right lung (CMS/HCC); Benign hypertension 09/05/2024 Orders Only [facility] Oncology and Hematology - [address] [place] [address] Raul Garibay MD 09/04/2024 8:30 AM CDT Office Visit [facility] Oncology and Hematology - [address] Raul Garibay MD Malignant neoplasm of upper lobe of right lung (CMS/HCC) (Primary Dx) 09/03/2024 External Device Data STL ABSTRACTION Provider, Abstract 08/26/2024 Orders Only [facility] Oncology and Hematology [facility] [address] [place] [phone] Raul Garibay MD Malignant neoplasm of upper lobe of right lung (CMS/HCC); Benign hypertension 08/14/2024 Orders Only [facility] and Hematology [facility] [address] [place] [phone] Raul Garibay MD Malignant neoplasm of upper lobe of right lung (CMS/HCC) (Primary Dx) 08/13/2024 External Device Data STL ABSTRACTION Provider, Abstract 08/13/2024 Orders Only [facility] On[facility] and Hematology [facility] [address] [place] [phone] Raul Garibay MD Malignant neoplasm of upper lobe of right lung (CMS/HCC) (Primary Dx); Benign hypertension 08/13/2024 Refill [facility] Hematology [facility] [address] [place] [phone] Raul Garibay MD 08/06/2024 External Device Data STL ABSTRACTION Provider, Abstract 08/06/2024 Telephone [facility] [address] [place] [phone] Raul Garibay MD Chemotherapy from Last 3 Months Family History Medical [...] on file 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 Gender Identity Not on file Sexual Orientation Not on file Last Filed Vital Signs Vital Sign Reading Time Taken Comments Blood Pressure 148/82 10/16/2024 8:39 AM CDT Pulse 84 10/16/2024 8:36 AM CDT Temperature 36.6 C (97.9 F) 10/16/2024 8:36 AM CDT Respiratory Rate 16 10/16/2024 8:36 AM CDT Oxygen Saturation 96% 10/16/2024 8:36 AM CDT Inhaled Oxygen Concentration - - Weight 109.9 kg (242 lb 3.2 oz) 10/16/2024 8:36 AM CDT Height 180.3 cm (5' 11) 12/14/2021 10: 07 AM CDT Body Mass Index 33.78 12/14/2021 10:07 AM CDT Plan of Treatment Upcoming Encounters Date Type Department Care Team (Late st Contact Info) Description 11/08/2024 11:00 AM CDT Appointment [facility] CT Scan [address] [place] [address] Raul Garibay MD [address] [facility] [address] [place] [phone] 11/26/2024 8:30 AM CDT Office Visit [facility]ology - [place] [address] [facility] [address] [place] [address] Raul Garibay MD [address] [facility] [address] [place] [phone] Health Maintenance Due Date Last Done Comments DTAP/TDAP/TD VACCINES (1 - Tdap) 1969 COLORECTAL SCREENING 07/20/1995 Colorectal Cancer Screening 07/20/1995 FIT-DNA Q 3 years 07/20/1995 FIT/FOBT Q 1 year 07/20/1995 Flex Sig/CT Colonography Q 5 years 07/20/1995 PNEUMOCOCCAL VACCINE 50+ YEARS (1 of 1 - PCV) 07/20/19 01 ZOSTER VACCINE (1 of 2) 2000 Abdominal Aortic Aneurysm (AAA) Screening 07/20/2015 INFLUENZA VACCINE (#1) 2024 RSV VACCINE (60+ or ) (1 - 1-dose 75+ series) 2025 Procedures Procedure Name Priority Date/Time Associated Diagnosis Comments BASIC METABOLIC PANEL Routine 10/16/2024 12:49 PM CDT COMPREHENSIVE METABOLIC PANEL Routine 10/16/2024 12:44 PM CDT BASIC METABOLIC PANEL Routine 09/25/2024 1:39 PM CDT COMPREHENSIVE METABOLIC PANEL Routine 09/25/2024 1:02 PM CDT BASIC METABOLIC PANEL Routine 09/04/2024 4:28 PM CDT COMPREHENSIVE METABOLIC PANEL Routine 09/04/2024 4:27 PM CDT BASIC METABOLIC PANEL Routine 08/14/2024 1:46 PM CDT CBC WITH DIFFERENTIAL Routine 08/14/2024 1:44 PM CDT from Last 3 Months Results * BASIC METABOLIC PANEL (10/16/2024 12:49 PM CDT) Only the most recent of4 resultswithin the time period is included. Blood us Raul Garibay MD CHEMISTRY ORDERABLES Final Resu lt * COMPREHENSIVE METABOLIC PANEL (10/16/2024 12:44 PM CDT) Only the most recent of3 resultswithin the time period is included. Blood us Raul Garibay MD CHEMISTRY ORDERABLES Final Resu lt * CBC WITH DIFFERENTIAL (08/14/2024 1:44 PM CDT) Blood us Raul Garibay MD HEMATOLOGY ORDERABLES Final Res ult from Last 3 Months Insurance MEDICARE PART A AND B MEDICARE PART A AND B BC OUT OF STATE Care Teams Heel Stiffener Relationship Specialty Start Date End Date Marko Ivy DO [address] [place] [address] PCP - General Family Practice 03/25/21
== END 2024-11-04 08:43 | disposition home or self-care (01) ==
PROVIDERS: PCP Family Medicine; Visit Provider Internal Medicine Hematology & Oncology
DX: R91.8 Other nonspecific abnormal finding of lung field (principal); R59.0 Localized enlarged lymph nodes; J18.1 Lobar pneumonia, unspecified organism; K76.9 Liver disease, unspecified; C34.11 Malignant neoplasm of upper lobe, right bronchus or lung
CPT/HCPCS: 71260; 74177; Q9967

== ENCOUNTER 2024-12-05 10:18 | Outpatient (CLI) | payer MEDICARE, BC, SELFPAY ==
--- NOTE | ~2024-12-05 | PE_ITS ---
EXAMINATION: PET skull to mid thigh DATE: 12/05/2024 12:40 INDICATION: Malignant neoplasm of upper lobe of left lung. TECHNIQUE: Blood glucose level was 97 mg/dL. 10.493 mCi of 18-fluorodeoxyglucose (18-FDG) was administered i.v. Low dose computed tomography (CT) images were acquired from the base of the brain to the proximal thighs for attenuation correction and anatomic localization. Automated exposure control was employed. Dose-length product (DLP) was 1273 mGy-cm. Positron emission tomography (PET) images were acquired in the same distribution. COMPARISON: PET/CT 07/02/2024, CT chest, abdomen, and pelvis 11/04/2024 FINDINGS: Head/neck: There is a 2.0 x 1.3 cm mass in right parotid gland with maximum SUV of 32.7. There is increased activity in a normal-sized node in left parotid gland, likely reactive. There are no pathologically enlarged lymph nodes. There is a left internal jugular port with tip in proximal right atrium. There is increased activity in left supraclavicular region without abnormal CT correlate, which may be brown fat. Chest: There is mild emphysema. There are airspace opacities in the paramediastinal right upper lobe with volume loss and maximum SUV of 2.5, consistent with radiation fibrosis. There is a mass in paramediastinal left upper lobe with maximum SUV of 13.9 measuring 4.0 x 3.1 cm, decreased from 5.2 x 3.7 cm on 07/02/24. There are normal-sized mediastinal and bilateral hilar lymph nodes with maximum SUV of 6.9. Calcified pulmonary nodules and calcified hilar lymph nodes are consistent with old granulomatous disease. There is mild atelectasis bilaterally. Cardiomegaly is noted. There are coronary artery c alcifications. No pericardial effusion. Abdomen/pelvis/proximal thighs: The liver is normal. There is a gallstone in the gallbladder which is normal in size. The spleen, pancreas, and adrenal glands are normal. There are cysts in the kidneys measuring up to 7.3 cm on the left. The prostate is mildly enlarged. There is diverticulosis of the colon without evidence of diverticulitis. The appendix is normal. There are no pathologically enlarged lymph nodes. There is no free intraperitoneal fluid. There is no osseous malignancy. IMPRESSION: 1. Stable right parotid mass with increased activity, consistent with biopsy- proved Warthin tumor. 2. Paramediastinal left upper lobe lung mass with increased activity with interval decrease in size from 07/02/2024, consistent with squamous cell carcinoma and treatment changes. 3. 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 4. Normal-sized mediastinal and bilateral hilar lymph nodes with increased activity with decrease in size at left hilum from 07/02/24, consistent with metastatic disease. Reviewed, dictated and finalized at location E. IMPRESSION: 1. Stable right parotid mass with increased activity, consistent with biopsy-pr rosie Warthin tumor. 2. Paramediastinal left upper lobe lung mass with increased activity with inte rval decrease in size from 07/02/2024, consistent with squamous cell carcinoma a nd treatment changes. 3. 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 4. Normal-sized mediastinal and bilateral hilar lymph nodes with increased acti vity with decrease in size at left hilum from 07/02/24, consistent with metastat ic disease.
== END 2024-12-05 10:19 | disposition home or self-care (01) ==
PROVIDERS: PCP Family Medicine; Visit Provider Radiology Radiation Oncology
DX: C34.91 Malignant neoplasm of unspecified part of right bronchus or lung (principal); J70.1 Chronic and other pulmonary manifestations due to radiation; C34.12 Malignant neoplasm of upper lobe, left bronchus or lung
CPT/HCPCS: 78815; A9552